=== PATIENT | male | born 1930 | race Asian ===

== ENCOUNTER 2018-08-06 06:27 | Day surgery (SDC) | payer MEDICAID ==
[~2018-08-06 06:27] MED LIST: ceFAZolin 1 GM in Premix Bag 1 BAG IV ONE
--- NOTE | 2018-08-06 07:22 | PCM.PREANE ---
Preanesthetic Assessment - Anesthesia/Transfusion/Family Hx Anesthesia History: Prior Anesthesia Without Reaction Family History of Anesthesia Reaction: No Transfusion History: Prior Transfusion Without Reaction - Review of Systems General: No Symptoms Pulmonary: No Symptoms Cardiovascular: No Symptoms Gastrointestinal: No Symptoms Neurological: Confusion, Pre-Existing Deficit, Trouble Speaking, Difficulty Walking Other: Reports: None - Physical Assessment NPO Status Date: 08/05/18 O2 Sat by Pulse Oximetry: 98 Respiratory Rate: 18 Vital Signs: Last Vital Signs Temp 97.3 F 08/06/18 07:08 Pulse 72 08/06/18 07:08 Resp 18 08/06/18 07:08 BP 188/92 H 08/06/18 07:08 Pulse Ox 98 08/06/18 07:08 Height: 5 ft 5.3 in Weight: 68.039 kg ASA Class: 3 Mental Status: Other (non verbal since CVA, appears to understand speaker, opens mouth when asked) Airway Class: Mallampati = 3 Dentition: Reports: Missing Tooth/Teeth ROM/Head Extension: Limited/Partial Lungs: Clear to Auscultation, Normal Respiratory Effort Cardiovascular: Regular Rate, Regular Rhythm - Allergies Allergies/Adverse Reactions: Allergies Allergy/AdvReac Type Severity Reaction Status Date / Time seafood Allergy Cannot Uncoded 08/04/18 15:52 Remember - Blood Blood Available: No - Anesthesia Plan Pre-Op Medication Ordered: None - Acknowledgements Anesthesia Type Planned: MAC Pt an Appropriate Candidate for the Planned Anesthesia: Yes Alternatives and Risks of Anesthesia Discussed w Pt/Guardian: Yes Pt/Guardian Understands and Agrees with Anesthesia Plan: Yes Additional Comments: daughter came to hosp yest to meet with me, discussed anesthesia options, hx taken from her as well os surgeons H&P, PMH: 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, dementia- on altzheimers med, non verbal, s/p CVA with hemiparesis, DM2 -on metformin, htn , hld, on meds for GERD, Full code status in [facility], PLAN: MAC, with conversion to GA if he becomes agitated or uncooperative while in the OR PreAnesthesia Questionnaire HEENT History: Reports: Cataract, Other (See Below) Other HEENT History: wears glasses Cardiovascular History: Reports: High Cholesterol, Hypertension Respiratory History: Reports: Asthma, Other (See Below) Other Respiratory History: his daughter said he had "asthma" 10 years ago but not now Gastrointestinal History: Reports: GERD Neurological History: Reports: CVA, Other (See Below) Other Neuro History: hx of dementia, hemiplegic Psychiatric History: Reports: Dementia, Depression Endocrine/Metabolic History: Reports: Diabetes, Type II Oncologic (Cancer) History: Reports: Squamous Cell Carcinoma Dermatologic History: Reports: Other (See Below) Other Dermatologic History: possible pressure ulcer - Past Surgical History HEENT Surgical History: Reports: Cataract Surgery GI Surgical History: Reports: Cholecystectomy Dermatological Surgical History: Reports: Skin Biopsy - HOME MEDS Home Medications: Home Meds Famotidine [Pepcid] 20 mg PO BID 08/04/18 [History] Mirtazapine 15 mg PO BEDTIME 08/04/18 [History] Potassium Chloride 20 meq PO BID 08/04/18 [History] Pravastatin [Pravachol] 20 mg PO DAILY 08/04/18 [History] Rivastigmine [Exelon] 1 patch TOP ASDIRECTED 08/04/18 [History] metFORMIN HCl [Metformin HCl] 500 mg PO BIDMEALS 08/04/18 [History] - CURRENT (IN HOUSE) MEDS Current Meds: Current Medications Bupivacaine HCl/Epinephrine Bitart (Marcaine 0.25%/Epinephrine 1:200,000) 10 ml INJECT ONETIME ONE Stop: 08/06/18 08:01 Lactated Ringer's (Ringers, Lactated) 1,000 mls @ 125 mls/hr IV ASDIRECTED HEIDY Last Admin: 08/06/18 07:00 Dose: 125 mls/hr Discontinued Medications Cefazolin Sodium/Dextrose 1 gm (/ Premix) 50 mls @ 100 mls/hr IV ONETIME ONE Stop: 08/05/18 13:08
[2018-08-06] MEDS ORDERED: Bupivacaine 25%/EPINEPHrine/PF 30 ML ONE (07:26)
[2018-08-06] MEDS ORDERED: Lidocaine 2% 5 ML SDV ONE (07:43)
[2018-08-06] MEDS ORDERED: Propofol 200 MG/20 ML SDV ONE (07:43)
[2018-08-06] MEDS ORDERED: Bupivacaine 0.25%/EPINEPHrine 1:200,000 10 ML SDV INJECT ONE (08:00)
[2018-08-06] MEDS ORDERED: Lactated Ringers 1,000 ML IV SCH (08:00)
[2018-08-06] MEDS ORDERED: fentaNYL 100 MCG/2 ML SDV ONE (08:11)
--- NOTE | 2018-08-06 09:19 | PCM.POSTAN ---
POST ANESTHESIA ASSESSMENT - MENTAL STATUS Mental Status: Alert, Oriented - RESPIRATORY Respiratory Status: Respiratory Rate WNL, Airway Patent, O2 Saturation Stable - CARDIOVASCULAR CV Status: Pulse Rate WNL, Blood Pressure Stable - GASTROINTESTINAL GI Status: No Symptoms - POST OP HYDRATION Hydration Status: Adequate & Stable
--- NOTE | 2018-08-06 09:47 | PCM48HPAN ---
Post Anesthesia Note - EVALUATION WITHIN 48HRS OF ANESTHETIC Vital Signs in Normal Range: Yes Patient Participated in Evaluation: Yes Respiratory Function Stable: Yes Airway Patent: Yes Cardiovascular Function Stable: Yes Hydration Status Stable: Yes Pain Control Satisfactory: Yes Nausea and Vomiting Control Satisfactory: Yes Mental Status Recovered: Yes Resp Rate: 16
--- NOTE | 2018-08-06 11:35 | PCM.OPNOTE ---
- General Post-Op/Procedure Note Date of Surgery/Procedure: 08/06/18 Operative Procedure(s): excision of right amish squamous cell with frozen sections 4cm excision and intermediate repair Pre Op Diagnosis: right amish squamous cell 1.8cm Post-Op Diagnosis: Same Anesthesia Technique: Local, MAC Primary Surgeon: Kendra Le Pan Shaker: Oxana Albarado Complications: None Condition: Good Free Text/Narrative:: Intake & Output 08/05/18 08/06/18 08/06/18 23:59 07:59 15:59 Intake Total 550 Balance 550
== END 2018-08-06 10:04 | disposition home or self-care (01) ==
LOC: MW.SDS 06:27
PROVIDERS: ATTEND Plastic Surgery
DX: D04.39 Carcinoma in situ of skin of other parts of face (principal); I10 Essential (primary) hypertension; E11.9 Type 2 diabetes mellitus without complications; F03.90 Unspecified dementia, unspecified severity, without behavioral disturbance, psychotic disturbance, mood disturbance, and anxiety; E78.00 Pure hypercholesterolemia, unspecified; I63.9 Cerebral infarction, unspecified; G81.90 Hemiplegia, unspecified affecting unspecified side; K21.9 Gastro-esophageal reflux disease without esophagitis; F32.9 Major depressive disorder, single episode, unspecified; Z87.39 Personal history of other diseases of the musculoskeletal system and connective tissue; Z91.013 Allergy to seafood
CPT/HCPCS: 21012; 82962; J0690; J2001; J2704; J3010; J7120; 00300; 88305; 88331

== ENCOUNTER 2021-02-23 13:11 | Inpatient (IN) | payer MEDICAID ==
[2021-02-23] MEDS ORDERED: Sodium Chloride 0.9% 10 ML Syringe FLUSH PRN (13:13)
[2021-02-23] MEDS ORDERED: Sodium Chloride 0.9% 2.5 ML Syringe FLUSH PRN (13:13)
[2021-02-23] MEDS ORDERED: Sodium Chloride 0.9% 1,000 ML IV ONE ×2 (13:19→14:52)
--- NOTE | 2021-02-23 13:44 | EDM.PDOC ---
ED HPI GENERAL MEDICAL PROBLEM - General Chief Complaint: Respiratory Problem Stated Complaint: EMS Time Seen by Provider: 02/23/21 13:12 Source of Information: Reports: Residential Records History Limitations: Reports: Other (Nonverbal) - History of Present Illness INITIAL COMMENTS - FREE TEXT/NARRATIVE: HISTORY AND PHYSICAL: History of present illness: Patient is an 89 year old male who presents to the ED with known COVID-19 who is tachycardic and hypoxic. Patient was diagnosed with COVID-19 on February 17, 2021. He received the antibody therapy on the . He has been quarantined on the "COVID unit" at [facility]. According to staff he has had a decreased appetite, tachycardic with a heart rate in the 130s to 160s and noted to have oxygen saturation of 83% on room air. Patient is not typically on oxygen. Past medical history of dementia and being nonverbal (does yell and responds to his name), CVA, hemiplegia, hypertension, and type 2 diabetes. It is reported that patient is at his baseline. Review of systems: As per history of present illness and below otherwise all systems reviewed and negative. Past medical history: As per history of present illness and as reviewed below otherwise noncontributory. Surgical history: As per history of present illness and as reviewed below otherwise noncontributory. Social history: See social history for further information Family history: As per history of present illness and as reviewed below otherwise noncontributory. Physical exam: General: Well nourished 89 year old male. Alert and appropriate to self (hx of dementia and being nonverbal). Mood and affect are appropriate. Nontoxic in appearance and in no acute distress. Vital signs have been reviewed by me. Nursing notes were reviewed. HEENT: Normocephalic, pupils equal and reactive bilaterally, negative for conjunctival pallor or scleral icterus, mucous membranes moist, TMs normal bilaterally, throat clear, neck supple, nontender, trachea midline. No drooling or trismus noted. No meningeal signs. Lungs: Diminished to auscultation bilaterally. No wheezes, rales, or rhonchi. Chest nontender. Normal work of breathing, no accessory muscles used. Heart: Tachycardia with rate of 150- 160's. Abdomen: Soft, nondistended, appears to be nontender. Normoactive bowel sounds. Negative for masses or costovertebral tenderness. Skin: Intact, warm, dry. No lesions or rashes noted. Hematologic: No petechiae or purpra. Mucosa appropriate color and normal nail bed color and refill. Extremities: Atraumatic, moves right sided extremities per self without difficulty, hemiplegia involving the left. Strong radial and pedal pulses bilaterally. Neurovascular unremarkable. Neuro: Awake, alert, and appropriate for self. Cranial nerves unremarkable. Cerebellum unremarkable. Motor and sensory unremarkable throughout. Exam nonfocal. Please note that the patient was seen and evaluated during the 2019 SARS-CoV-2 novel coronavirus pandemic period. Community viral transmission is ongoing at time of this encounter and the emergency department is operating under pandemic response procedures. Medical Decision Making: Patient is brought to the ED with known COVID-19 (not on file here), received antibody therapy. He has been on the COVID unit at [facility], nursing staff noted his pulse in 130-160's over the past two days, today became hypoxic at 83% on RA. He bumps to 94% on 4L per NC. Patient has a PMH of dementia and being nonverbal (while here is is hollering and responds to his name), CVA, hemiplegia of left side, hypertension, and type 2 diabetes. It is noted that the patient's pulse is in the 150s to 160s. Does look like there are may be P waves, will start Cardizem and reevaluate. Chest x-ray shows patchy and interstitial opacities throughout the lungs bilaterally suspicious for COVID pneumonia. Tiny bilateral pleural effusions. Cardiomegaly. Patient has an elevated BUN 68 and Creat 2.1 (no previous labs to compare to). Elevated troponin at 0.357 (patient denies chest pain, states "no" when asked). Elevated D.dimer at 3.28. Radiology will not perform CT at this time due to renal function. After administering 12 mg of IV adenosine, patient's ventricular rate slowed down to 70 bpm. There are clear flutter waves noted between his ventricular beats. Shortly after administrating his adenosine, his heart rate sped back up to 150 bpm. Patient had previously been on adenosine per protocol, will give 0.25 mg/kg bolus and then increase to 10 with close monitoring of his blood pressure. Spoke with Dr Zuniga, hospitalist about this patient. Dr. Zuniga, is here to evaluate the patient. I did did update the family about patient admission. Patient's blood pressure is within normal limits, pulse has responded appropriately to the Cardizem. Patient will be admitted to the ICU. Diagnostics: CBC, CMP, Troponin, EKG, CXR, D.Dimer, Mag, COVID, CT PE, lactate Therapeutics: IV fluids, Remdesivir, Dexadron, Cardizem drip Impression: COVID-19 Renal insufficiency Hypomagnesium Atrial flutter vs fib, new onset Plan: ICU admission Definitive disposition and diagnosis as appropriate pending reevaluation and review of above. - Related Data Allergies Allergy/AdvReac Type Severity Reaction Status Date / Time seafood Allergy Cannot Uncoded 02/23/21 13:20 Remember Home Meds: Home Meds metFORMIN HCl [Metformin HCl] 500 mg PO BIDMEALS 08/04/18 [History] Acetaminophen [Tylenol] 500 mg PO Q6H 02/23/21 [History] Albuterol Sulfate 1 vial INH Q4H PRN 02/23/21 [History] Amino Acids/Protein Hydrolys [Prosource No Carb Liquid Pkt] 30 ml PO BID 02/23/21 [History] Aspirin 81 mg PO DAILY 02/23/21 [History] Calcium Citrate/Vitamin D3 [Calcium Citrate - Vit D3 Tab] 1 tab PO DAILY 02/23/21 [History] Carbamide Peroxide [Debrox] 3 drop EARBOTH BEDTIME PRN 02/23/21 [History] Codeine Phosphate/Guaifenesin [Guaifenesin AC Cough Syrup] 2 tsp PO Q4H PRN 02/23/21 [History] Cyanocobalamin (Vitamin B-12) [Vitamin B-12] 1,000 mcg PO DAILY 02/23/21 [History] Docusate Sodium [Colace] 100 mg PO BID 02/23/21 [History] Magnesium Hydroxide 1 gm PO DAILY PRN 02/23/21 [History] Mirtazapine 7.5 mg PO BEDTIME 02/23/21 [History] Multivitamin 1 tab PO DAILY 02/23/21 [History] Nitroglycerin [Nitrostat] 0.4 mg PO Q15M PRN 02/23/21 [History] Omeprazole 20 mg PO DAILY 02/23/21 [History] Potassium Chloride 20 meq PO BID 02/23/21 [History] Pravastatin Sodium 20 mg PO BEDTIME 02/23/21 [History] Pravastatin [Pravachol] 20 mg PO BEDTIME 02/23/21 [History] Rivastigmine Tartrate [Rivastigmine] 4.5 mg PO DAILY 02/23/21 [History] Sennosides [Senna] 2 tab PO BEDTIME 02/23/21 [History] amLODIPine Besylate [Amlodipine Besylate] 5 mg PO DAILY 02/23/21 [History] bisacodyL [Bisacodyl] 10 mg PO DAILY PRN 02/23/21 [History] hydrOXYzine HCL [Hydroxyzine HCl] 25 mg PO BID 02/23/21 [History] oxyCODONE HCl/Acetaminophen [Percocet 5-325 mg Tablet] 1 tab PO Q6H PRN 02/23/21 [History] polyethylene glycoL 3350 [MiraLAX] 17 gm PO BID 02/23/21 [History] predniSONE [Prednisone] 20 mg PO DAILY 02/23/21 [History] Past Medical History HEENT History: Reports: Cataract, Other (See Below) Other HEENT History: wears glasses Cardiovascular History: Reports: High Cholesterol, Hypertension Respiratory History: Reports: Asthma, Other (See Below) Other Respiratory History: his daughter said he had "asthma" 10 years ago but not now Gastrointestinal History: Reports: GERD Neurological History: Reports: CVA, Other (See Below) Other Neuro History: hx of dementia, hemiplegic Psychiatric History: Reports: Dementia, Depression Endocrine/Metabolic History: Reports: Diabetes, Type II Oncologic (Cancer) History: Reports: Squamous Cell Carcinoma Dermatologic History: Reports: Other (See Below) Other Dermatologic History: possible pressure ulcer - Past Surgical History HEENT Surgical History: Reports: Cataract Surgery GI Surgical History: Reports: Cholecystectomy Dermatological Surgical History: Reports: Skin Biopsy ED ROS GENERAL - Review of Systems Review Of Systems: Comprehensive ROS is negative, except as noted in HPI. ED EXAM, GENERAL - Physical Exam Exam: See Below (See dication) Course - Vital Signs Last Recorded V/S: Last Vital Signs Temp 97.9 F 02/23/21 18:00 Pulse 106 H 02/23/21 18:00 Resp 25 H 02/23/21 18:00 BP 105/66 02/23/21 18:00 Pulse Ox 95 02/23/21 18:00 - Orders/Labs/Meds Orders: Active Orders 24 hr Category Date Time Status Santoro Catheter Insertion [Insert Urinary Catheter] [OM. Care 02/23/21 14:30 Ordered PC] Q24H Oxygen Therapy, ED [RC] ASDIRECTED Care 02/23/21 13:14 Active Urinary Catheter Assessment [RC] ASDIRECTED Care 02/23/21 14:19 Active Sodium Chloride 0.9% [Saline Flush] Med 02/23/21 13:13 Active 10 ml FLUSH ASDIRECTED PRN Sodium Chloride 0.9% [Saline Flush] Med 02/23/21 13:13 Active 2.5 ml FLUSH ASDIRECTED PRN Saline Lock Insert [OM.PC] Stat Oth 02/23/21 13:14 Ordered Medication Orders Albuterol/Ipratropium (Albuterol/Ipratropium 3.0-0.5 Mg/3 Ml Neb Soln) 3 ml NEB Q4HRRT [facility] Amlodipine Besylate (Amlodipine 5 Mg Tab) 5 mg PO DAILY [facility] Aspirin (Aspirin 81 Mg Tab.Chew) 81 mg PO DAILY [facility] Bisacodyl (Bisacodyl 10 Mg Supp) 10 mg RECTAL DAILY PRN PRN Reason: Constipation Dexamethasone (Dexamethasone 10 Mg/Ml Sdv) 6 mg IVPUSH Q24H [facility] Docusate Sodium (Docusate Sodium 100 Mg Cap) 100 mg PO BID [facility] Guaifenesin/Codeine Phosphate (Codeine/Guaifenesin 10-100 Mg/5 Ml Syrup 5 Ml Cup) 5 ml PO Q4H PRN PRN Reason: Cough Hydroxyzine HCl (Hydroxyzine Hcl 25 Mg Tab) 25 mg PO BID [facility] Remdesivir 100 mg/ Sodium (Chloride) 100 mls @ 100 mls/hr IV Q24H [facility] Stop: 02/27/21 18:44 Diltiazem HCl 100 mg/ Sodium (Chloride) 100 mls @ 5 mls/hr IV ASDIRECTED [facility]; Protocol Sodium Chloride (Normal Saline) 500 mls @ 75 mls/hr IV ASDIRECTED [facility] Lorazepam (Lorazepam 2 Mg/Ml Sdv) 0.5 mg IVPUSH Q6HR PRN PRN Reason: Agitation Last Admin: 02/23/21 18:00 Dose: 0.5 mg Documented by: SPARLAT Magnesium Hydroxide (Magnesium Hydroxide 400 Mg/5 Ml Susp 30 Ml Cup) 30 ml PO DAILY PRN PRN Reason: Constipation Mirtazapine (Mirtazapine 15 Mg Tab) 7.5 mg PO BEDTIME [facility] Morphine Sulfate (Morphine 2 Mg/Ml Syringe) 2 mg IVPUSH Q2H PRN PRN Reason: Pain Last Admin: 02/23/21 18:00 Dose: 2 mg Documented by: SPARLAT Nitroglycerin (Nitroglycerin 0.4 Mg Tab.Sl) 0.4 mg SL .Q5MIN PRN PRN Reason: Chest Pain Omeprazole (Omeprazole 20 Mg Cap.Cr) 20 mg PO DAILY@0630 [facility] Oxycodone/Acetaminophen (Acetaminophen/Oxycodone 325-5 Mg Tab) 1 tab PO Q6H PRN PRN Reason: Pain Rivastigmine Tartrate [ Rivastigmine] 4.5 Mg Capsule 1 each PO DAILY [facility] Senna (Sennosides 8.6 Mg Tab) 17.2 mg PO BEDTIME [facility] Sodium Chloride (Sodium Chloride 0.9% 10 Ml Syringe) 10 ml FLUSH ASDIRECTED PRN PRN Reason: Keep Vein Open Last Admin: 02/23/21 14:14 Dose: 10 ml Documented by: AIMEE Sodium Chloride (Sodium Chloride 0.9% 2.5 Ml Syringe) 2.5 ml FLUSH ASDIRECTED PRN PRN Reason: Keep Vein Open Last Admin: 02/23/21 14:13 Dose: 2.5 ml Documented by: AIMEE Labs: Laboratory Tests 02/23/21 02/23/21 02/23/21 Range/Units 13:30 13:30 13:30 WBC 10.95 (4.0-11.0) K/uL RBC 4.95 (4.50-5.90) M/uL Hgb 15.1 (13.0-17.0) g/dL Hct 46.1 (38.0-50.0) % MCV 93.1 (80.0-98.0) fL MCH 30.5 (27.0-32.0) pg MCHC 32.8 (31.0-37.0) g/dL RDW Std Deviation 48.9 (28.0-62.0) fl RDW Coeff of Will 15 (11.0-15.0) % Plt Count 346 (150-400) K/uL MPV 10.20 (7.40-12.00) fL Add Manual Diff YES Neutrophils % (Manual) 89 H (48.0-80.0) % Band Neutrophils % 3 % Lymphocytes % (Manual) 4 L (16.0-40.0) % Monocytes % (Manual) 2 (0.0-15.0) % Metamyelocytes % 1 % Myelocytes % 1 % Nucleated RBC % 5.9 /100WBC Absolute Seg Neuts 9.7 H (1.4-5.7) Band Neutrophils # 0.3 Lymphocytes # (Manual) 0.4 L (0.6-2.4) Monocytes # (Manual) 0.2 (0.0-0.8) Absolute Metamyelocyte 0.1 Absolute Myelocytes 0.1 Nucleated RBCs # 1 K/uL D-Dimer, Quantitative 3.28 H (0.0-0.50) mg/L FEU Sodium 151 H (136-148) mmol/L Potassium 5.5 H (3.5-5.1) mmol/L Chloride 114 H (98-107) mmol/L Carbon Dioxide 22.7 (21.0-32.0) mmol/L BUN 68 H (7.0-18.0) mg/dL Creatinine 2.1 H (0.8-1.3) mg/dL Est Cr Clr Drug Dosing 20.36 mL/min Estimated GFR (MDRD) 30.0 ml/min Glucose 214 H (74-106) mg/dL Lactic Acid (0.4-2.0) mmol/L Calcium 10.3 H (8.5-10.1) mg/dL Magnesium 2.6 H (1.8-2.4) mg/dL Total Bilirubin 0.6 (0.2-1.0) mg/dL AST 33 (15-37) IU/L ALT 43 (14-63) IU/L Alkaline Phosphatase 157 H (46-116) U/L Troponin I 0.357 H* (0.000-0.056) ng/mL Total Protein 7.2 (6.4-8.2) g/dL Albumin 2.3 L (3.4-5.0) g/dL Globulin 4.9 H (2.6-4.0) g/dL Albumin/Globulin Ratio 0.5 L (0.9-1.6) Urine Color Urine Appearance Urine pH (5.0-8.0) Ur Specific Polson (1.001-1.035) Urine Protein (NEGATIVE) mg/dL Urine Glucose (UA) (NEGATIVE) mg/dL Urine Ketones (NEGATIVE) mg/dL Urine Occult Blood (NEGATIVE) Urine Nitrite (NEGATIVE) Urine Bilirubin (NEGATIVE) Urine Urobilinogen (<2.0) EU/dL Ur Leukocyte Esterase (NEGATIVE) Urine RBC (0-2/HPF) Urine WBC (0-5/HPF) Ur Epithelial Cells (NONE-FEW) Urine Bacteria (NEGATIVE) Influenza Type A RNA (NEGATIVE) Influenza Type B RNA (NEGATIVE) SARS-CoV-2 RNA (ALESSANDRA) (NEGATIVE) 02/23/21 02/23/21 02/23/21 Range/Units 13:56 14:05 15:20 WBC (4.0-11.0) K/uL RBC (4.50-5.90) M/uL Hgb (13.0-17.0) g/dL Hct (38.0-50.0) % MCV (80.0-98.0) fL MCH (27.0-32.0) pg MCHC (31.0-37.0) g/dL RDW Std Deviation (28.0-62.0) fl RDW Coeff of Will (11.0-15.0) % Plt Count (150-400) K/uL MPV (7.40-12.00) fL Add Manual Diff Neutrophils % (Manual) (48.0-80.0) % Band Neutrophils % % Lymphocytes % (Manual) (16.0-40.0) % Monocytes % (Manual) (0.0-15.0) % Metamyelocytes % % Myelocytes % % Nucleated RBC % /100WBC Absolute Seg Neuts (1.4-5.7) Band Neutrophils # Lymphocytes # (Manual) (0.6-2.4) Monocytes # (Manual) (0.0-0.8) Absolute Metamyelocyte Absolute Myelocytes Nucleated RBCs # K/uL D-Dimer, Quantitative (0.0-0.50) mg/L FEU Sodium (136-148) mmol/L Potassium (3.5-5.1) mmol/L Chloride (98-107) mmol/L Carbon Dioxide (21.0-32.0) mmol/L BUN (7.0-18.0) mg/dL Creatinine (0.8-1.3) mg/dL Est Cr Clr Drug Dosing mL/min Estimated GFR (MDRD) ml/min Glucose (74-106) mg/dL Lactic Acid 2.9 H* (0.4-2.0) mmol/L Calcium (8.5-10.1) mg/dL Magnesium (1.8-2.4) mg/dL Total Bilirubin (0.2-1.0) mg/dL AST (15-37) IU/L ALT (14-63) IU/L Alkaline Phosphatase (46-116) U/L Troponin I (0.000-0.056) ng/mL Total Protein (6.4-8.2) g/dL Albumin (3.4-5.0) g/dL Globulin (2.6-4.0) g/dL Albumin/Globulin Ratio (0.9-1.6) Urine Color YELLOW Urine Appearance HAZY Urine pH 5.5 (5.0-8.0) Ur Specific [place] 1.020 (1.001-1.035) Urine Protein NEGATIVE (NEGATIVE) mg/dL Urine Glucose (UA) NEGATIVE (NEGATIVE) mg/dL Urine Ketones 15 H (NEGATIVE) mg/dL Urine Occult Blood SMALL H (NEGATIVE) Urine Nitrite NEGATIVE (NEGATIVE) Urine Bilirubin SMALL H (NEGATIVE) Urine Urobilinogen 0.2 (<2.0) EU/dL Ur Leukocyte Esterase NEGATIVE (NEGATIVE) Urine RBC 1-4 (0-2/HPF) Urine WBC 0-2 (0-5/HPF) Ur Epithelial Cells RARE (NONE-FEW) Urine Bacteria RARE (NEGATIVE) Influenza Type A RNA NEGATIVE (NEGATIVE) Influenza Type B RNA NEGATIVE (NEGATIVE) SARS-CoV-2 RNA (ALESSANDRA) POSITIVE H (NEGATIVE) Meds: Medications Generic Name Dose Route Start Last Admin Trade Name Freq PRN Reason Stop Dose Admin Albuterol/Ipratropium 3 ml 02/23/21 22:00 Albuterol/Ipratropium 3.0-0.5 Mg/3 Ml Neb Soln NEB Q4HRRT [facility] Amlodipine Besylate 5 mg 02/24/21 09:00 Amlodipine 5 Mg Tab PO DAILY [facility] Aspirin 81 mg 02/24/21 09:00 Aspirin 81 Mg Tab.Chew PO DAILY [facility] Bisacodyl 10 mg 02/23/21 15:46 Bisacodyl 10 Mg Supp RECTAL DAILY PRN Constipation Dexamethasone 6 mg 02/24/21 17:00 Dexamethasone 10 Mg/Ml Sdv IVPUSH Q24H [facility] Docusate Sodium 100 mg 02/23/21 21:00 Docusate Sodium 100 Mg Cap PO BID [facility] Guaifenesin/Codeine Phosphate 5 ml 02/23/21 16:07 Codeine/Guaifenesin 10-100 Mg/5 Ml Syrup 5 Ml Cup PO Q4H PRN Cough Hydroxyzine HCl 25 mg 02/23/21 21:00 Hydroxyzine Hcl 25 Mg Tab PO BID [facility] Remdesivir 100 mg/ Sodium 100 mls @ 100 mls/hr 02/24/21 17:45 Chloride IV 02/27/21 18:44 Q24H [facility] Diltiazem HCl 100 mg/ Sodium 100 mls @ 5 mls/hr 02/23/21 17:45 Chloride IV ASDIRECTED [facility] Protocol 5 MG/HR Sodium Chloride 500 mls @ 75 mls/hr 02/23/21 18:15 Normal Saline IV ASDIRECTED [facility] Lorazepam 0.5 mg 02/23/21 17:51 02/23/21 18:00 Lorazepam 2 Mg/Ml Sdv IVPUSH 0.5 mg Q6HR PRN Administration Agitation Magnesium Hydroxide 30 ml 02/23/21 16:08 Magnesium Hydroxide 400 Mg/5 Ml Susp 30 Ml Cup PO DAILY PRN Constipation Mirtazapine 7.5 mg 02/23/21 21:00 Mirtazapine 15 Mg Tab PO BEDTIME [facility] Morphine Sulfate 2 mg 02/23/21 17:52 02/23/21 18:00 Morphine 2 Mg/Ml Syringe IVPUSH 2 mg Q2H PRN Administration Pain Nitroglycerin 0.4 mg 02/23/21 15:46 Nitroglycerin 0.4 Mg Tab.Sl SL .Q5MIN PRN Chest Pain Omeprazole 20 mg 02/24/21 06:30 Omeprazole 20 Mg Cap.Cr PO DAILY@0630 [facility] Oxycodone/Acetaminophen 1 tab 02/23/21 15:46 Acetaminophen/Oxycodone 325-5 Mg Tab PO Q6H PRN Pain Rivastigmine 1 each 02/24/21 09:00 Tartrate [ PO Rivastigmine] 4.5 Mg DAILY [facility] Capsule Senna 17.2 mg 02/23/21 21:00 Sennosides 8.6 Mg Tab PO BEDTIME [facility] Sodium Chloride 10 ml 02/23/21 13:13 02/23/21 14:14 Sodium Chloride 0.9% 10 Ml Syringe FLUSH 10 ml ASDIRECTED PRN Administration Keep Vein Open Sodium Chloride 2.5 ml 02/23/21 13:13 02/23/21 14:13 Sodium Chloride 0.9% 2.5 Ml Syringe FLUSH 2.5 ml ASDIRECTED PRN Administration Keep Vein Open Discontinued Medications Generic Name Dose Route Start Last Admin Trade Name Freq PRN Reason Stop Dose Admin Adenosine 12 mg 02/23/21 14:58 02/23/21 15:29 Adenosine 6 Mg/2 Ml Sdv IVPUSH 02/23/21 14:59 12 mg NOW ONE Administration Albuterol 2.5 mg 02/23/21 21:00 Albuterol 0.083% 2.5 Mg/3 Ml Neb Soln INH QIDRT [facility] Dexamethasone 6 mg 02/23/21 14:27 02/23/21 15:26 Dexamethasone 4 Mg/Ml Sdv IVPUSH 02/23/21 14:28 6 mg ONETIME ONE Administration Dexamethasone 6 mg 02/23/21 17:45 Dexamethasone 4 Mg/Ml Sdv IVPUSH 03/04/21 17:46 Q6H [facility] Diltiazem HCl 15 mg 02/23/21 15:17 02/23/21 15:27 Diltiazem 25 Mg/5 Ml Sdv IVPUSH 02/23/21 15:18 15 mg ONETIME ONE Administration Sodium Chloride 1,000 mls @ 999 mls/hr 02/23/21 13:19 02/23/21 13:54 Normal Saline IV 02/23/21 14:19 999 mls/hr STAT ONE Administration Diltiazem HCl 100 mg/ Sodium 100 mls @ 5 mls/hr 02/23/21 14:00 02/23/21 17:30 Chloride IV 15 mg/hr NOW [facility] 15 mls/hr Titration Protocol 5 MG/HR Remdesivir 200 mg/ Sodium 250 mls @ 250 mls/hr 02/23/21 14:27 02/23/21 15:21 Chloride IV 02/23/21 14:28 250 mls/hr ONETIME ONE Administration Sodium Chloride 1,000 mls @ 999 mls/hr 02/23/21 14:52 02/23/21 15:18 Normal Saline IV 02/23/21 15:52 999 mls/hr STAT ONE Administration Prednisone 20 mg 02/24/21 09:00 Prednisone 20 Mg Tab PO DAILY [facility] Departure - Departure Time of Disposition: 20:14 Disposition: Admitted As Inpatient 68 Clinical Impression: COVID-19, Renal insufficiency, Atrial fibrillation with RVR, Hypomagnesemia - Discharge Information Critical Care Note - Critical Care Note Total Time (mins): 38 Comments: Critical care time is exclusive of billable procedures and the time to perform these procedures. Critical care time was used to prevent vital system organ failure and deterioration. Critical care time includes bedside management and high-complexity decision making requiring my highest level of mental preparedness and attention. This includes reviewing the patient's chart and prior medical records, ordering and reviewing interpreting laboratory studies and imaging results, interpretation of vital signs and EKG, pulse oximetry, and discussion with the admitting team along with EMS and nursing staff. Patient has had abnormal lab values along with abnormal vital signs that have been monitored closely and treated/adjusted accordingly. Please see dictation. Sepsis Event Note (ED) - Focused Exam Vital Signs: Vital Signs Temp Pulse Resp BP Pulse Ox 02/23/21 15:02 157 H 119/68 94 L 02/23/21 14:47 158 H 113/78 98 02/23/21 14:32 158 H 121/82 97 02/23/21 14:15 158 H 115/85 93 L 02/23/21 13:44 159 H 20 115/82 93 L 02/23/21 13:11 97.8 F 160 H 18 125/84 89 L - My Orders Last 24 Hours: My Active Orders 02/23/21 13:13 Sodium Chloride 0.9% [Saline Flush] 10 ml FLUSH ASDIRECTED PRN Sodium Chloride 0.9% [Saline Flush] 2.5 ml FLUSH ASDIRECTED PRN 02/23/21 13:14 Oxygen Therapy, ED [RC] ASDIRECTED Saline Lock Insert [OM.PC] Stat 02/23/21 14:19 Urinary Catheter Assessment [RC] ASDIRECTED 02/23/21 14:30 Santoro Catheter Insertion [Insert Urinary Catheter] [OM.PC] Q24H - Assessment/Plan Last 24 Hours: My Active Orders 02/23/21 13:13 Sodium Chloride 0.9% [Saline Flush] 10 ml FLUSH ASDIRECTED PRN Sodium Chloride 0.9% [Saline Flush] 2.5 ml FLUSH ASDIRECTED PRN 02/23/21 13:14 Oxygen Therapy, ED [RC] ASDIRECTED Saline Lock Insert [OM.PC] Stat 02/23/21 14:19 Urinary Catheter Assessment [RC] ASDIRECTED 02/23/21 14:30 Santoro Catheter Insertion [Insert Urinary Catheter] [OM.PC] Q24H
[2021-02-23] MEDS ORDERED: Diltiazem 100 MG in Sodium Chloride 0.9% 100 ML IV SCH (14:00)
[2021-02-23 14:11] LABS: CARBON DIOXIDE,CO2 22.7 mmol/L (21.0-32.0); POTASSIUM,K 5.5 mmol/L (3.5-5.1)
--- NOTE | 2021-02-23 14:11 | CR ---
INDICATION: COVID, hypoxia. TECHNIQUE: Chest 1 view. COMPARISON: None. FINDINGS: There are patchy and interstitial opacities throughout the lungs bilaterally. Tiny bilateral pleural effusions. No pneumothorax identified, however the patient`s chin partially obscures the lung apices. Cardiomegaly. Aortic calcification. The bones are unremarkable. IMPRESSION: 1. Patchy and interstitial opacities throughout the lungs bilaterally suspicious for COVID pneumonia. 2. Tiny bilateral pleural effusions. 3. Cardiomegaly. Dictated by Christina Kumar MD @ 02/23/2021 2:09:53 PM (Electronically Signed)
[2021-02-23] MEDS ORDERED: Dexamethasone 4 MG/ML SDV IVPUSH ONE (14:27)
[2021-02-23] MEDS ORDERED: REMDESIVIR 200 MG in Sodium Chloride 0.9% 250 ML IV ONE (14:27)
[2021-02-23 14:47] LABS: CORONAVIRUS COVID-19 NAA POSITIVE (NEGATIVE); INFLUENZA A NAA NEGATIVE (NEGATIVE); INFLUENZA B NAA NEGATIVE (NEGATIVE)
[2021-02-23] MEDS ORDERED: Adenosine 6 MG/2 ML SDV IVPUSH ONE (14:58)
[2021-02-23] MEDS ORDERED: Diltiazem 25 MG/5 ML SDV IVPUSH ONE (15:17)
--- NOTE | 2021-02-23 15:44 | PCM.HP.2 ---
H&P History of Present Illness - General Date of Service: 02/23/21 Admit Problem/Dx: Admission Diagnosis/Problem Admission Diagnosis/Problem Hypoxia - History of Present Illness Initial Comments - Free Text/Narative: This is an 89 y/o male from [facility] who presented to the ED with a rapid heart rate and hypoxemia. He was diagnosed with COVID-19 on February 17, 2021. He received the monoclonal antibody therapy on the . He has been quarantined on the "COVID unit" since then. According to staff he has had a decreased appetite, tachycardic with a heart rate in the 130s to 160s and noted to have oxygen saturation of 83% on room air. Patient is not typically on oxygen. He has a h/o dementia. He is mostly non-verbal but responds to his name by yelling. He has a h/o CVA, hemiplegia, hypertension, and type 2 diabetes. In the ED he was noted to have Afib with RVR. - Related Data Allergies/Adverse Reactions: Allergies Allergy/AdvReac Type Severity Reaction Status Date / Time seafood Allergy Cannot Uncoded 02/23/21 13:20 Remember Home Medications: Home Meds metFORMIN HCl [Metformin HCl] 500 mg PO BIDMEALS 08/04/18 [History] Acetaminophen [Tylenol] 500 mg PO Q6H 02/23/21 [History] Albuterol Sulfate 1 vial INH Q4H PRN 02/23/21 [History] Amino Acids/Protein Hydrolys [Prosource No Carb Liquid Pkt] 30 ml PO BID 02/23/21 [History] Aspirin 81 mg PO DAILY 02/23/21 [History] Calcium Citrate/Vitamin D3 [Calcium Citrate - Vit D3 Tab] 1 tab PO DAILY 02/23/21 [History] Carbamide Peroxide [Debrox] 3 drop EARBOTH BEDTIME PRN 02/23/21 [History] Codeine Phosphate/Guaifenesin [Guaifenesin AC Cough Syrup] 2 tsp PO Q4H PRN 02/23/21 [History] Cyanocobalamin (Vitamin B-12) [Vitamin B-12] 1,000 mcg PO DAILY 02/23/21 [History] Docusate Sodium [Colace] 100 mg PO BID 02/23/21 [History] Magnesium Hydroxide 1 gm PO DAILY PRN 02/23/21 [History] Mirtazapine 7.5 mg PO BEDTIME 02/23/21 [History] Multivitamin 1 tab PO DAILY 02/23/21 [History] Nitroglycerin [Nitrostat] 0.4 mg PO Q15M PRN 02/23/21 [History] Omeprazole 20 mg PO DAILY 02/23/21 [History] Potassium Chloride 20 meq PO BID 02/23/21 [History] Pravastatin Sodium 20 mg PO BEDTIME 02/23/21 [History] Pravastatin [Pravachol] 20 mg PO BEDTIME 02/23/21 [History] Rivastigmine Tartrate [Rivastigmine] 4.5 mg PO DAILY 02/23/21 [History] Sennosides [Senna] 2 tab PO BEDTIME 02/23/21 [History] amLODIPine Besylate [Amlodipine Besylate] 5 mg PO DAILY 02/23/21 [History] bisacodyL [Bisacodyl] 10 mg PO DAILY PRN 02/23/21 [History] hydrOXYzine HCL [Hydroxyzine HCl] 25 mg PO BID 02/23/21 [History] oxyCODONE HCl/Acetaminophen [Percocet 5-325 mg Tablet] 1 tab PO Q6H PRN 02/23/21 [History] polyethylene glycoL 3350 [MiraLAX] 17 gm PO BID 02/23/21 [History] predniSONE [Prednisone] 20 mg PO DAILY 02/23/21 [History] Past Medical History HEENT History: Reports: Cataract, Other (See Below) Other HEENT History: wears glasses Cardiovascular History: Reports: High Cholesterol, Hypertension Respiratory History: Reports: Asthma, Other (See Below) Other Respiratory History: his daughter said he had "asthma" 10 years ago but not now Gastrointestinal History: Reports: GERD Neurological History: Reports: CVA, Other (See Below) Other Neuro History: hx of dementia, hemiplegic Psychiatric History: Reports: Dementia, Depression Endocrine/Metabolic History: Reports: Diabetes, Type II Oncologic (Cancer) History: Reports: Squamous Cell Carcinoma Dermatologic History: Reports: Other (See Below) Other Dermatologic History: possible pressure ulcer - Past Surgical History HEENT Surgical History: Reports: Cataract Surgery GI Surgical History: Reports: Cholecystectomy Dermatological Surgical History: Reports: Skin Biopsy H&P Review of Systems - Review of Systems: Review Of Systems: See Below Exam - Exam Exam: See Below - Vital Signs Vital Signs: Last Vital Signs Temp 97.8 F 02/23/21 13:11 Pulse 160 H 02/23/21 13:11 Resp 18 02/23/21 13:11 BP 125/84 02/23/21 13:11 Pulse Ox 89 L 02/23/21 13:11 Weight: 149 lb - Exam Physical Exam Comments:: General: Elderly male. Responds to his name. CVS: S1S2 appreciated. RRR. Tachycardic lungs: Diminished breath sounds bilaterally pa: soft, non tender. bowel sounds present ext: no clubbing, cyanosis. 1-2+ peripheral edema in the LUE and LLE Neuro: LUE strength 2/5, LUE 1/5 LLE. 5/5 both RUE and RLE. - Patient Data Lab Results Last 24 hrs: Laboratory Results - last 24 hr 02/23/21 02/23/21 02/23/21 Range/Units 13:30 13:30 13:30 WBC 10.95 (4.0-11.0) K/uL RBC 4.95 (4.50-5.90) M/uL Hgb 15.1 (13.0-17.0) g/dL Hct 46.1 (38.0-50.0) % MCV 93.1 (80.0-98.0) fL MCH 30.5 (27.0-32.0) pg MCHC 32.8 (31.0-37.0) g/dL RDW Std Deviation 48.9 (28.0-62.0) fl RDW Coeff of Will 15 (11.0-15.0) % Plt Count 346 (150-400) K/uL MPV 10.20 (7.40-12.00) fL Add Manual Diff YES Neutrophils % (Manual) 89 H (48.0-80.0) % Band Neutrophils % 3 % Lymphocytes % (Manual) 4 L (16.0-40.0) % Monocytes % (Manual) 2 (0.0-15.0) % Metamyelocytes % 1 % Myelocytes % 1 % Nucleated RBC % 5.9 /100WBC Absolute Seg Neuts 9.7 H (1.4-5.7) Band Neutrophils # 0.3 Lymphocytes # (Manual) 0.4 L (0.6-2.4) Monocytes # (Manual) 0.2 (0.0-0.8) Absolute Metamyelocyte 0.1 Absolute Myelocytes 0.1 Nucleated RBCs # 1 K/uL D-Dimer, Quantitative 3.28 H (0.0-0.50) mg/L FEU Sodium 151 H (136-148) mmol/L Potassium 5.5 H (3.5-5.1) mmol/L Chloride 114 H (98-107) mmol/L Carbon Dioxide 22.7 (21.0-32.0) mmol/L BUN 68 H (7.0-18.0) mg/dL Creatinine 2.1 H (0.8-1.3) mg/dL Est Cr Clr Drug Dosing 20.36 mL/min Estimated GFR (MDRD) 30.0 ml/min Glucose 214 H (74-106) mg/dL Lactic Acid (0.4-2.0) mmol/L Calcium 10.3 H (8.5-10.1) mg/dL Magnesium 2.6 H (1.8-2.4) mg/dL Total Bilirubin 0.6 (0.2-1.0) mg/dL AST 33 (15-37) IU/L ALT 43 (14-63) IU/L Alkaline Phosphatase 157 H (46-116) U/L Troponin I 0.357 H* (0.000-0.056) ng/mL Total Protein 7.2 (6.4-8.2) g/dL Albumin 2.3 L (3.4-5.0) g/dL Globulin 4.9 H (2.6-4.0) g/dL Albumin/Globulin Ratio 0.5 L (0.9-1.6) Influenza Type A RNA (NEGATIVE) Influenza Type B RNA (NEGATIVE) SARS-CoV-2 RNA (ALESSANDRA) (NEGATIVE) 02/23/21 02/23/21 Range/Units 13:56 14:05 WBC (4.0-11.0) K/uL RBC (4.50-5.90) M/uL Hgb (13.0-17.0) g/dL Hct (38.0-50.0) % MCV (80.0-98.0) fL MCH (27.0-32.0) pg MCHC (31.0-37.0) g/dL RDW Std Deviation (28.0-62.0) fl RDW Coeff of Will (11.0-15.0) % Plt Count (150-400) K/uL MPV (7.40-12.00) fL Add Manual Diff Neutrophils % (Manual) (48.0-80.0) % Band Neutrophils % % Lymphocytes % (Manual) (16.0-40.0) % Monocytes % (Manual) (0.0-15.0) % Metamyelocytes % % Myelocytes % % Nucleated RBC % /100WBC Absolute Seg Neuts (1.4-5.7) Band Neutrophils # Lymphocytes # (Manual) (0.6-2.4) Monocytes # (Manual) (0.0-0.8) Absolute Metamyelocyte Absolute Myelocytes Nucleated RBCs # K/uL D-Dimer, Quantitative (0.0-0.50) mg/L FEU Sodium (136-148) mmol/L Potassium (3.5-5.1) mmol/L Chloride (98-107) mmol/L Carbon Dioxide (21.0-32.0) mmol/L BUN (7.0-18.0) mg/dL Creatinine (0.8-1.3) mg/dL Est Cr Clr Drug Dosing mL/min Estimated GFR (MDRD) ml/min Glucose (74-106) mg/dL Lactic Acid 2.9 H* (0.4-2.0) mmol/L Calcium (8.5-10.1) mg/dL Magnesium (1.8-2.4) mg/dL Total Bilirubin (0.2-1.0) mg/dL AST (15-37) IU/L ALT (14-63) IU/L Alkaline Phosphatase (46-116) U/L Troponin I (0.000-0.056) ng/mL Total Protein (6.4-8.2) g/dL Albumin (3.4-5.0) g/dL Globulin (2.6-4.0) g/dL Albumin/Globulin Ratio (0.9-1.6) Influenza Type A RNA NEGATIVE (NEGATIVE) Influenza Type B RNA NEGATIVE (NEGATIVE) SARS-CoV-2 RNA (ALESSANDRA) POSITIVE H (NEGATIVE) Result Diagrams: 02/23/21 13:30 02/23/21 13:30 Sepsis Event Note - Evaluation Sepsis Screening Result: No Definite Risk - Focused Exam Vital Signs: Vital Signs Temp Pulse Resp BP Pulse Ox 02/23/21 13:11 97.8 F 160 H 18 125/84 89 L - Problem List (1) Renal failure SNOMED Code(s): 15384508 ICD Code: N19 - UNSPECIFIED KIDNEY FAILURE Status: Acute Current Visit: Yes (2) COVID-19 virus infection SNOMED Code(s): 915088064 ICD Code: U07.1 - COVID-19 Status: Acute Current Visit: Yes (3) Atrial fibrillation with RVR SNOMED Code(s): 361151199904793 ICD Code: I48.91 - UNSPECIFIED ATRIAL FIBRILLATION Status: Acute Current Visit: Yes (4) CVA (cerebral vascular accident) SNOMED Code(s): 130436564 ICD Code: I63.9 - CEREBRAL INFARCTION, UNSPECIFIED Status: Acute Current Visit: Yes (5) Dementia SNOMED Code(s): 34268740 ICD Code: F03.90 - UNSPECIFIED DEMENTIA WITHOUT BEHAVIORAL DISTURBANCE Status: Acute Current Visit: Yes Problem List Initiated/Reviewed/Updated: Yes Orders Last 24hrs: Active Orders 24 hr Category Date Time Status Admission Status [Patient Status] [ADT] Stat ADT 02/23/21 15:22 Active Cardiac Monitoring [RC] . DIRECTED Care 02/23/21 15:22 Active EKG 12 Lead [EKG Documentation Completion] [RC] STAT Care 02/23/21 13:12 Active Santoro Catheter Insertion [Insert Urinary Catheter] [OM. Care 02/23/21 14:30 Ordered PC] Q24H Oxygen Therapy, ED [RC] ASDIRECTED Care 02/23/21 13:14 Active Urinary Catheter Assessment [RC] ASDIRECTED Care 02/23/21 14:19 Active PE Chest [Ang Chest] [CT] Stat Exams 02/23/21 14:32 Ordered REFLEX LACTIC ACID YES OR NO [CHEM] Routine Lab 02/23/21 14:43 Received UA RFX WESLEY AND CULT IF INDIC [URIN] Stat Lab 02/23/21 15:20 Received Diltiazem [Cardizem] 100 mg Med 02/23/21 14:00 Active Sodium Chloride 0.9% [Normal Saline AdvBag] 100 ml IV NOW Sodium Chloride 0.9% [Normal Saline] 1,000 ml Med 02/23/21 14:52 Active IV STAT Sodium Chloride 0.9% [Saline Flush] Med 02/23/21 13:13 Active 10 ml FLUSH ASDIRECTED PRN Sodium Chloride 0.9% [Saline Flush] Med 02/23/21 13:13 Active 2.5 ml FLUSH ASDIRECTED PRN Saline Lock Insert [OM.PC] Stat Oth 02/23/21 13:14 Ordered Medication Orders Diltiazem HCl 100 mg/ Sodium (Chloride) 100 mls @ 5 mls/hr IV NOW HEIDY; Protocol Last Titration: 02/23/21 15:16 Dose: 10 mg/hr, 10 mls/hr Documented by: Admin: 02/23/21 14:02 Dose: 5 mg/hr, 5 mls/hr Documented by: AIMEE Sodium Chloride (Normal Saline) 1,000 mls @ 999 mls/hr IV STAT ONE Stop: 02/23/21 15:52 Last Admin: 02/23/21 15:18 Dose: 999 mls/hr Documented by: AIMEE Sodium Chloride (Sodium Chloride 0.9% 10 Ml Syringe) 10 ml FLUSH ASDIRECTED PRN PRN Reason: Keep Vein Open Last Admin: 02/23/21 14:14 Dose: 10 ml Documented by: AIMEE Sodium Chloride (Sodium Chloride 0.9% 2.5 Ml Syringe) 2.5 ml FLUSH ASDIRECTED PRN PRN Reason: Keep Vein Open Last Admin: 02/23/21 14:13 Dose: 2.5 ml Documented by: AIMEE Assessment/Plan Comment:: Acute respiratory failure due to covid 19 pneumonia Admit pt to the medical floor for oxygen supplementation. Pt is currently on 2 L NC. Afib with RVR Cardizem gtt. Covid 19 infection Will treat pt with Decadron and remdesivir. Anticoagulation. Renal failure likely BALDOMERO superimposed on CKD will gently hydrate pt and recheck bun/cr in am. Dementia with behavioral issues may benefit from ativan prn or haldol. History of CVA with residual left sided weakness. ASA, Statin Full code. Pt's overall prognosis is poor given his age and multiple comorbidities. I discussed with the family regarding pt's code status and the need for DNR/DNI and a hospice evaluation. - Mortality Measure Prognosis:: Poor
[2021-02-23] MEDS ORDERED: Nitroglycerin 0.4 MG Tab.SL SL PRN (15:46)
[2021-02-23] MEDS ORDERED: Acetaminophen/oxyCODONE 325-5 MG Tab PO PRN (15:46)
[2021-02-23] MEDS ORDERED: Bisacodyl 10 MG Supp RECTAL PRN (15:46)
[2021-02-23] MEDS ORDERED: Codeine/guaiFENesin 10-100 MG/5 ML Syrup 5 ML Cup PO PRN (16:07)
[2021-02-23] MEDS ORDERED: Magnesium Hydroxide 400 MG/5 ML Susp 30 ML Cup PO PRN (16:08)
--- NOTE | 2021-02-23 16:12 | PCM.EKG ---
#1 Interpretation EKG Date: 02/23/21 Time: 13:14 EKG Interpretation Comments: EKG: As interpreted by ER physician: Ricarda: Nonspecific ST-T wave abnormalities Normal axis No evidence of ST elevation MO SVT likely atrial flutter at a heart rate of 160 #2 Interpretation EKG Date: 02/23/21 Time: 15:54 EKG Interpretation Comments: EKG: As interpreted by ER physician: Ricarda: Nonspecific ST-T wave abnormalities Normal axis No evidence of ST elevation MO Atrial fibrillation/atrial flutter with a heart rate of 130
[2021-02-23] MEDS ORDERED: Dexamethasone 4 MG/ML SDV IVPUSH SCH (17:45)
[2021-02-23] MEDS: LORazepam 2 MG/ML SDV IVPUSH PRN (18:00)
[2021-02-23] MEDS: Morphine 2 MG/ML SYRINGE IVPUSH PRN ×2 (18:00→23:16)
[2021-02-23] MEDS ORDERED: Sodium Chloride 0.9% 500 ML IV SCH (18:15)
--- NOTE | 2021-02-23 19:49 | PN ---
THC Physician - Brief Progress [id number]/02/2021 19:33[facility] Ho [place]aur, [place] - MWN [facility] - ANTHONY [place] REARDON of Service 02/23/2021 19:33HPI/Events of Not e eICU Admission Note89 y/o male with PMH of dementia, CVA with hemiplegia, HTN and DM. Per documentt ion he is mostly non-verbal but responds to name by yelling. [facility] He was vin gnosed with Covid on 02/17, he recieved monoclonal antibodies on the 02/19. Patient has had decrease appetite and oral intake and today he was found tachycardic in the 130s-160s and hypoxemic with sat 83 on RA. Work up significant for CXR showing patchy airspace disease, Na 151, K 5.5, Cr 2.1 Lactic a sampson 2.9. Patient was admitted to ICU.Per RN report, patient was very agitated this evening, and recei dhara morphine and ativan. Currently sleeping on 4L O2. Assessment:Covid pneumoniaAKI - likely pre-nazanin l due to poor oral intakeHypernatremia - likely due to poor oral intake and hypovolemiaAdvanced michelle Barry Recommendations:Covid treatment per hospital guidelinesContinue supplemental [id number] resuscit ationStart DVT prophylaxisContinue GI prophylaxisSelf proning not indicated given hemiplegia and adva nced dementiaThank you for allowing us to participate in the care of your patient.Interventions Major -Hypoxemia - evaluation and management, Infection - evaluation and managementIntermediate-Communicati on with other healthcare providers and/or familyElectronically Signed by: MARCELLE JIN) on 2020 19:48
--- NOTE | 2021-02-23 19:51 | PN ---
THC Physician - Brief Progress [id number]/02/2021 19:49[facility] Ho ruiz, VAZQUEZ - ANTHONY (ANASTACIA) - ANTHONY WYLIENy LUNDBERG of Service 02/23/2021 19:49HPI/Events of Not e eICU Admission NoteAddendum to initial admission notePatient found on afib with RVR, likely in the setting of hypoxia and hypovolemia. No indication for anticoagulation. Improved at this timeThank you for allowing us to participate in the care of your patient.Interventions Major-Arrhythmia - evaluati on and managementIntermediate-Communication with other healthcare providers and/or familyElectronical ly Signed by: MARCELLE JIN) on 02/23/2021 19:51
[2021-02-23] MEDS: Mirtazapine 15 MG Tab PO SCH ×2 (20:23→20:52)
[2021-02-23] MEDS: Diltiazem 100 MG in Sodium Chloride 0.9% 100 ML IV SCH (20:24)
[2021-02-23] MEDS: hydrOXYzine HCl 25 MG Tab PO SCH ×2 (20:24→20:53)
[2021-02-23] MEDS: Docusate Sodium 100 MG Cap PO SCH (20:52)
[2021-02-23] MEDS ORDERED: Sennosides 8.6 MG Tab PO SCH (21:00)
[2021-02-23] MEDS ORDERED: [UNRECOGNIZED DRUG - REMARK] PO SCH (21:00)
[2021-02-23] MEDS ORDERED: Albuterol 0.083% 2.5 MG/3 ML Neb Soln INH SCH (21:00)
[2021-02-23] MEDS: Albuterol/Ipratropium 3.0-0.5 MG/3 ML Neb Soln NEB SCH (21:43)
[2021-02-24] MEDS ORDERED: Heparin Sodium/0.45% NaCl 500 ML IV SCH (00:15)
[2021-02-24] MEDS ORDERED: Heparin Sodium 5,000 Units/ML Vial IVPUSH ONE (00:30)
[2021-02-24] MEDS: LORazepam 2 MG/ML SDV IVPUSH PRN ×2 (01:31→22:40)
[2021-02-24] MEDS: Albuterol/Ipratropium 3.0-0.5 MG/3 ML Neb Soln NEB SCH ×5 (01:33→18:10)
--- NOTE | 2021-02-24 01:56 | PN ---
THC Physician - Brief Progress [id number]/03/2021 01:52[facility] asra [place], VAZQUEZ - ANTHONY (ANASTACIA) - Ny BURCIAGA of Service 02/24/2021 01:52HPI/Events of Not e in atrial fibrillation and with h/o CVA even though he has aphasia and hemiplegia he is high risk f or thromboembolismAlso with elevated ddimer and with COVID infectionPlan:initiated heparin bolus and dripcheck glucose nowInterventions Major-Arrhythmia - evaluation and management, Hyperglycemia - act jaida titration of insulin therapyIntermediate-Coagulopathy - evaluation and managementElectronically S igned by: Chandni MEDINA) on 02/24/2021 01:55
[2021-02-24] MEDS: Morphine 2 MG/ML SYRINGE IVPUSH PRN ×5 (03:40→22:27)
[2021-02-24] MEDS: Diltiazem 100 MG in Sodium Chloride 0.9% 100 ML IV SCH ×2 (05:28→13:53)
[2021-02-24] MEDS ORDERED: Omeprazole 20 MG Cap.CR PO SCH (06:30)
[2021-02-24] MEDS ORDERED: amLODIPine 5 MG Tab PO SCH (09:00)
[2021-02-24] MEDS ORDERED: RIVASTIGMINE TARTRATE 4.5 MG PO SCH (09:00)
[2021-02-24] MEDS ORDERED: predniSONE 20 MG Tab PO SCH (09:00)
[2021-02-24] MEDS ORDERED: Aspirin 81 MG Tab.Chew PO SCH (09:00)
[2021-02-24] MEDS: Docusate Sodium 100 MG Cap PO SCH (09:26)
[2021-02-24] MEDS: hydrOXYzine HCl 25 MG Tab PO SCH (09:26)
[2021-02-24] MEDS ORDERED: Amiodarone 200 MG Tab PO SCH (10:30)
[2021-02-24] MEDS ORDERED: Diltiazem 25 MG/5 ML SDV IVPUSH ONE (11:21)
--- NOTE | 2021-02-24 13:45 | PCM.PN ---
<Erma Reed - Last Filed: 02/24/21 13:37> - General Info Date of Service: 02/24/21 Subjective Update: The patient is an 89-year-old [place] male, on day 2 of service, from [facility], who has a significant past medical history of CVA, hemiplegia, hypertension, diabetes mellitus, GERD, and depression, who was admitted to the intensive care unit due to acute respiratory failure secondary to COVID-19 pneumonia and A. fib with RVR. Upon interview with the patient today he is a poor historian and cannot give a detailed history on what his symptoms are. He is currently saturating 92% on 6 L of oxygen and being treated with different COVID-19 protocol medications. He is also on a Cardizem drip for his A. fib with RVR and on telemetry. Much of his history was obtained from the ICU nurse who contacted [facility]. We will continue to monitor this patient for improvement/deterioration and treat him accordingly. - Review of Systems General: Reports: Other (Patient is a poor historian and cannot answer questions) - Patient Data Vitals - Most Recent: Last Vital Signs Temp 96.8 F L 02/24/21 12:00 Pulse 109 H 02/24/21 07:00 Resp 26 H 02/24/21 12:00 BP 119/54 L 02/24/21 12:00 Pulse Ox 90 L 02/24/21 12:00 Weight - Most Recent: 145 lb 11.609 oz I&O - Last 24 Hours: Intake & Output 02/23/21 02/24/21 02/24/21 22:59 06:59 14:59 Intake Total 787 Output Total 350 Balance 437 Lab Results Last 24 Hours: Laboratory Results - last 24 hr 02/23/21 02/23/21 02/23/21 Range/Units 13:30 13:30 13:30 WBC 10.95 (4.0-11.0) K/uL RBC 4.95 (4.50-5.90) M/uL Hgb 15.1 (13.0-17.0) g/dL Hct 46.1 (38.0-50.0) % MCV 93.1 (80.0-98.0) fL MCH 30.5 (27.0-32.0) pg MCHC 32.8 (31.0-37.0) g/dL RDW Std Deviation 48.9 (28.0-62.0) fl RDW Coeff of Will 15 (11.0-15.0) % Plt Count 346 (150-400) K/uL MPV 10.20 (7.40-12.00) fL Add Manual Diff YES Neutrophils % (Manual) 89 H (48.0-80.0) % Band Neutrophils % 3 % Lymphocytes % (Manual) 4 L (16.0-40.0) % Monocytes % (Manual) 2 (0.0-15.0) % Metamyelocytes % 1 % Myelocytes % 1 % Nucleated RBC % 5.9 /100WBC Absolute Seg Neuts 9.7 H (1.4-5.7) Band Neutrophils # 0.3 Lymphocytes # (Manual) 0.4 L (0.6-2.4) Monocytes # (Manual) 0.2 (0.0-0.8) Absolute Metamyelocyte 0.1 Absolute Myelocytes 0.1 Nucleated RBCs # 1 K/uL APTT (18.6-31.3) SEC D-Dimer, Quantitative 3.28 H (0.0-0.50) mg/L FEU Sodium 151 H (136-148) mmol/L Potassium 5.5 H (3.5-5.1) mmol/L Chloride 114 H (98-107) mmol/L Carbon Dioxide 22.7 (21.0-32.0) mmol/L BUN 68 H (7.0-18.0) mg/dL Creatinine 2.1 H (0.8-1.3) mg/dL Est Cr Clr Drug Dosing 20.36 mL/min Estimated GFR (MDRD) 30.0 ml/min Glucose 214 H (74-106) mg/dL POC Glucose (70-99) mg/dL Lactic Acid (0.4-2.0) mmol/L Calcium 10.3 H (8.5-10.1) mg/dL Magnesium 2.6 H (1.8-2.4) mg/dL Total Bilirubin 0.6 (0.2-1.0) mg/dL AST 33 (15-37) IU/L ALT 43 (14-63) IU/L Alkaline Phosphatase 157 H (46-116) U/L Troponin I 0.357 H* (0.000-0.056) ng/mL Total Protein 7.2 (6.4-8.2) g/dL Albumin 2.3 L (3.4-5.0) g/dL Globulin 4.9 H (2.6-4.0) g/dL Albumin/Globulin Ratio 0.5 L (0.9-1.6) Urine Color Urine Appearance Urine pH (5.0-8.0) Ur Specific Wilson (1.001-1.035) Urine Protein (NEGATIVE) mg/dL Urine Glucose (UA) (NEGATIVE) mg/dL Urine Ketones (NEGATIVE) mg/dL Urine Occult Blood (NEGATIVE) Urine Nitrite (NEGATIVE) Urine Bilirubin (NEGATIVE) Urine Urobilinogen (<2.0) EU/dL Ur Leukocyte Esterase (NEGATIVE) Urine RBC (0-2/HPF) Urine WBC (0-5/HPF) Ur Epithelial Cells (NONE-FEW) Urine Bacteria (NEGATIVE) Influenza Type A RNA (NEGATIVE) Influenza Type B RNA (NEGATIVE) SARS-CoV-2 RNA (ALESSANDRA) (NEGATIVE) 02/23/21 02/23/21 02/23/21 Range/Units 13:56 14:05 15:20 WBC (4.0-11.0) K/uL RBC (4.50-5.90) M/uL Hgb (13.0-17.0) g/dL Hct (38.0-50.0) % MCV (80.0-98.0) fL MCH (27.0-32.0) pg MCHC (31.0-37.0) g/dL RDW Std Deviation (28.0-62.0) fl RDW Coeff of Will (11.0-15.0) % Plt Count (150-400) K/uL MPV (7.40-12.00) fL Add Manual Diff Neutrophils % (Manual) (48.0-80.0) % Band Neutrophils % % Lymphocytes % (Manual) (16.0-40.0) % Monocytes % (Manual) (0.0-15.0) % Metamyelocytes % % Myelocytes % % Nucleated RBC % /100WBC Absolute Seg Neuts (1.4-5.7) Band Neutrophils # Lymphocytes # (Manual) (0.6-2.4) Monocytes # (Manual) (0.0-0.8) Absolute Metamyelocyte Absolute Myelocytes Nucleated RBCs # K/uL APTT (18.6-31.3) SEC D-Dimer, Quantitative (0.0-0.50) mg/L FEU Sodium (136-148) mmol/L Potassium (3.5-5.1) mmol/L Chloride (98-107) mmol/L Carbon Dioxide (21.0-32.0) mmol/L BUN (7.0-18.0) mg/dL Creatinine (0.8-1.3) mg/dL Est Cr Clr Drug Dosing mL/min Estimated GFR (MDRD) ml/min Glucose (74-106) mg/dL POC Glucose (70-99) mg/dL Lactic Acid 2.9 H* (0.4-2.0) mmol/L Calcium (8.5-10.1) mg/dL Magnesium (1.8-2.4) mg/dL Total Bilirubin (0.2-1.0) mg/dL AST (15-37) IU/L ALT (14-63) IU/L Alkaline Phosphatase (46-116) U/L Troponin I (0.000-0.056) ng/mL Total Protein (6.4-8.2) g/dL Albumin (3.4-5.0) g/dL Globulin (2.6-4.0) g/dL Albumin/Globulin Ratio (0.9-1.6) Urine Color YELLOW Urine Appearance HAZY Urine pH 5.5 (5.0-8.0) Ur Specific Wilson 1.020 (1.001-1.035) Urine Protein NEGATIVE (NEGATIVE) mg/dL Urine Glucose (UA) NEGATIVE (NEGATIVE) mg/dL Urine Ketones 15 H (NEGATIVE) mg/dL Urine Occult Blood SMALL H (NEGATIVE) Urine Nitrite NEGATIVE (NEGATIVE) Urine Bilirubin SMALL H (NEGATIVE) Urine Urobilinogen 0.2 (<2.0) EU/dL Ur Leukocyte Esterase NEGATIVE (NEGATIVE) Urine RBC 1-4 (0-2/HPF) Urine WBC 0-2 (0-5/HPF) Ur Epithelial Cells RARE (NONE-FEW) Urine Bacteria RARE (NEGATIVE) Influenza Type A RNA NEGATIVE (NEGATIVE) Influenza Type B RNA NEGATIVE (NEGATIVE) SARS-CoV-2 RNA (ALESSANDRA) POSITIVE H (NEGATIVE) 02/24/21 02/24/21 02/24/21 Range/Units 00:30 02:12 05:54 WBC (4.0-11.0) K/uL RBC (4.50-5.90) M/uL Hgb (13.0-17.0) g/dL Hct (38.0-50.0) % MCV (80.0-98.0) fL MCH (27.0-32.0) pg MCHC (31.0-37.0) g/dL RDW Std Deviation (28.0-62.0) fl RDW Coeff of Will (11.0-15.0) % Plt Count (150-400) K/uL MPV (7.40-12.00) fL Add Manual Diff Neutrophils % (Manual) (48.0-80.0) % Band Neutrophils % % Lymphocytes % (Manual) (16.0-40.0) % Monocytes % (Manual) (0.0-15.0) % Metamyelocytes % % Myelocytes % % Nucleated RBC % /100WBC Absolute Seg Neuts (1.4-5.7) Band Neutrophils # Lymphocytes # (Manual) (0.6-2.4) Monocytes # (Manual) (0.0-0.8) Absolute Metamyelocyte Absolute Myelocytes Nucleated RBCs # K/uL APTT 24.6 (18.6-31.3) SEC D-Dimer, Quantitative (0.0-0.50) mg/L FEU Sodium (136-148) mmol/L Potassium (3.5-5.1) mmol/L Chloride (98-107) mmol/L Carbon Dioxide (21.0-32.0) mmol/L BUN (7.0-18.0) mg/dL Creatinine (0.8-1.3) mg/dL Est Cr Clr Drug Dosing mL/min Estimated GFR (MDRD) ml/min Glucose (74-106) mg/dL POC Glucose 190 H 168 H (70-99) mg/dL Lactic Acid (0.4-2.0) mmol/L Calcium (8.5-10.1) mg/dL Magnesium (1.8-2.4) mg/dL Total Bilirubin (0.2-1.0) mg/dL AST (15-37) IU/L ALT (14-63) IU/L Alkaline Phosphatase (46-116) U/L Troponin I (0.000-0.056) ng/mL Total Protein (6.4-8.2) g/dL Albumin (3.4-5.0) g/dL Globulin (2.6-4.0) g/dL Albumin/Globulin Ratio (0.9-1.6) Urine Color Urine Appearance Urine pH (5.0-8.0) Ur Specific Wilson (1.001-1.035) Urine Protein (NEGATIVE) mg/dL Urine Glucose (UA) (NEGATIVE) mg/dL Urine Ketones (NEGATIVE) mg/dL Urine Occult Blood (NEGATIVE) Urine Nitrite (NEGATIVE) Urine Bilirubin (NEGATIVE) Urine Urobilinogen (<2.0) EU/dL Ur Leukocyte Esterase (NEGATIVE) Urine RBC (0-2/HPF) Urine WBC (0-5/HPF) Ur Epithelial Cells (NONE-FEW) Urine Bacteria (NEGATIVE) Influenza Type A RNA (NEGATIVE) Influenza Type B RNA (NEGATIVE) SARS-CoV-2 RNA (ALESSANDRA) (NEGATIVE) 02/24/21 02/24/21 02/24/21 Range/Units 06:15 06:15 12:02 WBC (4.0-11.0) K/uL RBC (4.50-5.90) M/uL Hgb (13.0-17.0) g/dL Hct (38.0-50.0) % MCV (80.0-98.0) fL MCH (27.0-32.0) pg MCHC (31.0-37.0) g/dL RDW Std Deviation (28.0-62.0) fl RDW Coeff of Will (11.0-15.0) % Plt Count (150-400) K/uL MPV (7.40-12.00) fL Add Manual Diff Neutrophils % (Manual) (48.0-80.0) % Band Neutrophils % % Lymphocytes % (Manual) (16.0-40.0) % Monocytes % (Manual) (0.0-15.0) % Metamyelocytes % % Myelocytes % % Nucleated RBC % /100WBC Absolute Seg Neuts (1.4-5.7) Band Neutrophils # Lymphocytes # (Manual) (0.6-2.4) Monocytes # (Manual) (0.0-0.8) Absolute Metamyelocyte Absolute Myelocytes Nucleated RBCs # K/uL APTT 154.0 H (18.6-31.3) SEC D-Dimer, Quantitative (0.0-0.50) mg/L FEU Sodium (136-148) mmol/L Potassium (3.5-5.1) mmol/L Chloride (98-107) mmol/L Carbon Dioxide (21.0-32.0) mmol/L BUN (7.0-18.0) mg/dL Creatinine (0.8-1.3) mg/dL Est Cr Clr Drug Dosing mL/min Estimated GFR (MDRD) ml/min Glucose (74-106) mg/dL POC Glucose 206 H (70-99) mg/dL Lactic Acid 2.6 H* (0.4-2.0) mmol/L Calcium (8.5-10.1) mg/dL Magnesium (1.8-2.4) mg/dL Total Bilirubin (0.2-1.0) mg/dL AST (15-37) IU/L ALT (14-63) IU/L Alkaline Phosphatase (46-116) U/L Troponin I (0.000-0.056) ng/mL Total Protein (6.4-8.2) g/dL Albumin (3.4-5.0) g/dL Globulin (2.6-4.0) g/dL Albumin/Globulin Ratio (0.9-1.6) Urine Color Urine Appearance Urine pH (5.0-8.0) Ur Specific Wilson (1.001-1.035) Urine Protein (NEGATIVE) mg/dL Urine Glucose (UA) (NEGATIVE) mg/dL Urine Ketones (NEGATIVE) mg/dL Urine Occult Blood (NEGATIVE) Urine Nitrite (NEGATIVE) Urine Bilirubin (NEGATIVE) Urine Urobilinogen (<2.0) EU/dL Ur Leukocyte Esterase (NEGATIVE) Urine RBC (0-2/HPF) Urine WBC (0-5/HPF) Ur Epithelial Cells (NONE-FEW) Urine Bacteria (NEGATIVE) Influenza Type A RNA (NEGATIVE) Influenza Type B RNA (NEGATIVE) SARS-CoV-2 RNA (ALESSANDRA) (NEGATIVE) 02/24/21 Range/Units 12:35 WBC (4.0-11.0) K/uL RBC (4.50-5.90) M/uL Hgb (13.0-17.0) g/dL Hct (38.0-50.0) % MCV (80.0-98.0) fL MCH (27.0-32.0) pg MCHC (31.0-37.0) g/dL RDW Std Deviation (28.0-62.0) fl RDW Coeff of Will (11.0-15.0) % Plt Count (150-400) K/uL MPV (7.40-12.00) fL Add Manual Diff Neutrophils % (Manual) (48.0-80.0) % Band Neutrophils % % Lymphocytes % (Manual) (16.0-40.0) % Monocytes % (Manual) (0.0-15.0) % Metamyelocytes % % Myelocytes % % Nucleated RBC % /100WBC Absolute Seg Neuts (1.4-5.7) Band Neutrophils # Lymphocytes # (Manual) (0.6-2.4) Monocytes # (Manual) (0.0-0.8) Absolute Metamyelocyte Absolute Myelocytes Nucleated RBCs # K/uL APTT 106.0 H (18.6-31.3) SEC D-Dimer, Quantitative (0.0-0.50) mg/L FEU Sodium (136-148) mmol/L Potassium (3.5-5.1) mmol/L Chloride (98-107) mmol/L Carbon Dioxide (21.0-32.0) mmol/L BUN (7.0-18.0) mg/dL Creatinine (0.8-1.3) mg/dL Est Cr Clr Drug Dosing mL/min Estimated GFR (MDRD) ml/min Glucose (74-106) mg/dL POC Glucose (70-99) mg/dL Lactic Acid (0.4-2.0) mmol/L Calcium (8.5-10.1) mg/dL Magnesium (1.8-2.4) mg/dL Total Bilirubin (0.2-1.0) mg/dL AST (15-37) IU/L ALT (14-63) IU/L Alkaline Phosphatase (46-116) U/L Troponin I (0.000-0.056) ng/mL Total Protein (6.4-8.2) g/dL Albumin (3.4-5.0) g/dL Globulin (2.6-4.0) g/dL Albumin/Globulin Ratio (0.9-1.6) Urine Color Urine Appearance Urine pH (5.0-8.0) Ur Specific Wilson (1.001-1.035) Urine Protein (NEGATIVE) mg/dL Urine Glucose (UA) (NEGATIVE) mg/dL Urine Ketones (NEGATIVE) mg/dL Urine Occult Blood (NEGATIVE) Urine Nitrite (NEGATIVE) Urine Bilirubin (NEGATIVE) Urine Urobilinogen (<2.0) EU/dL Ur Leukocyte Esterase (NEGATIVE) Urine RBC (0-2/HPF) Urine WBC (0-5/HPF) Ur Epithelial Cells (NONE-FEW) Urine Bacteria (NEGATIVE) Influenza Type A RNA (NEGATIVE) Influenza Type B RNA (NEGATIVE) SARS-CoV-2 RNA (ALESSANDRA) (NEGATIVE) Med Orders - Current: Current Medications Albuterol/Ipratropium (Albuterol/Ipratropium 3.0-0.5 Mg/3 Ml Neb Soln) 3 ml NEB Q4HRRT [facility] Last Admin: 02/24/21 09:54 Dose: 3 ml Documented by: Amlodipine Besylate (Amlodipine 5 Mg Tab) 5 mg PO DAILY [facility] Last Admin: 02/24/21 09:26 Dose: Not Given Documented by: Aspirin (Aspirin 81 Mg Tab.Chew) 81 mg PO DAILY [facility] Last Admin: 02/24/21 09:26 Dose: Not Given Documented by: Bisacodyl (Bisacodyl 10 Mg Supp) 10 mg RECTAL DAILY PRN PRN Reason: Constipation Dexamethasone (Dexamethasone 10 Mg/Ml Sdv) 6 mg IVPUSH Q24H [facility] Docusate Sodium (Docusate Sodium 100 Mg Cap) 100 mg PO BID [facility] Last Admin: 02/24/21 09:26 Dose: Not Given Documented by: Guaifenesin/Codeine Phosphate (Codeine/Guaifenesin 10-100 Mg/5 Ml Syrup 5 Ml Cup) 5 ml PO Q4H PRN PRN Reason: Cough Hydroxyzine HCl (Hydroxyzine Hcl 25 Mg Tab) 25 mg PO BID [facility] Last Admin: 02/24/21 09:26 Dose: Not Given Documented by: Remdesivir 100 mg/ Sodium (Chloride) 100 mls @ 100 mls/hr IV Q24H [facility] Stop: 02/27/21 18:44 Diltiazem HCl 100 mg/ Sodium (Chloride) 100 mls @ 5 mls/hr IV ASDIRECTED [facility]; Protocol Last Titration: 02/24/21 11:33 Dose: 15 mg/hr, 15 mls/hr Documented by: Sodium Chloride (Normal Saline) 500 mls @ 75 mls/hr IV ASDIRECTED [facility] Last Admin: 02/23/21 20:55 Dose: 75 mls/hr Documented by: Heparin Sodium/Sodium Chloride (Heparin 25,000 Units In 1/2 Ns 500 Ml) 500 mls @ 24.516 mls/hr IV TITRATE [facility]; Protocol Last Titration: 02/24/21 09:10 Dose: 15 units/kg/hr, 20.43 mls/hr Documented by: Lorazepam (Lorazepam 2 Mg/Ml Sdv) 0.5 mg IVPUSH Q6HR PRN PRN Reason: Agitation Last Admin: 02/24/21 01:31 Dose: 0.5 mg Documented by: Magnesium Hydroxide (Magnesium Hydroxide 400 Mg/5 Ml Susp 30 Ml Cup) 30 ml PO DAILY PRN PRN Reason: Constipation Mirtazapine (Mirtazapine 15 Mg Tab) 7.5 mg PO BEDTIME [facility] Last Admin: 02/23/21 20:52 Dose: Not Given Documented by: Morphine Sulfate (Morphine 2 Mg/Ml Syringe) 2 mg IVPUSH Q2H PRN PRN Reason: Pain Last Admin: 02/24/21 09:53 Dose: 2 mg Documented by: Nitroglycerin (Nitroglycerin 0.4 Mg Tab.Sl) 0.4 mg SL .Q5MIN PRN PRN Reason: Chest Pain Omeprazole (Omeprazole 20 Mg Cap.Cr) 20 mg PO DAILY@0630 [facility] Last Admin: 02/24/21 06:39 Dose: Not Given Documented by: Oxycodone/Acetaminophen (Acetaminophen/Oxycodone 325-5 Mg Tab) 1 tab PO Q6H PRN PRN Reason: Pain Rivastigmine Tartrate [ Rivastigmine] 4.5 Mg Capsule 1 each PO DAILY [facility] Last Admin: 02/24/21 09:27 Dose: Not Given Documented by: Senna (Sennosides 8.6 Mg Tab) 17.2 mg PO BEDTIME [facility] Last Admin: 02/23/21 20:52 Dose: Not Given Documented by: Sodium Chloride (Sodium Chloride 0.9% 10 Ml Syringe) 10 ml FLUSH ASDIRECTED PRN PRN Reason: Keep Vein Open Last Admin: 02/23/21 14:14 Dose: 10 ml Documented by: Sodium Chloride (Sodium Chloride 0.9% 2.5 Ml Syringe) 2.5 ml FLUSH ASDIRECTED PRN PRN Reason: Keep Vein Open Last Admin: 02/23/21 14:13 Dose: 2.5 ml Documented by: Discontinued Medications Adenosine (Adenosine 6 Mg/2 Ml Sdv) 12 mg IVPUSH NOW ONE Stop: 02/23/21 14:59 Last Admin: 02/23/21 15:29 Dose: 12 mg Documented by: Albuterol (Albuterol 0.083% 2.5 Mg/3 Ml Neb Soln) 2.5 mg INH QIDRT [facility] Amiodarone HCl (Amiodarone 200 Mg Tab) 400 mg PO BID [facility] Last Admin: 02/24/21 11:39 Dose: Not Given Documented by: Dexamethasone (Dexamethasone 4 Mg/Ml Sdv) 6 mg IVPUSH ONETIME ONE Stop: 02/23/21 14:28 Last Admin: 02/23/21 15:26 Dose: 6 mg Documented by: Dexamethasone (Dexamethasone 4 Mg/Ml Sdv) 6 mg IVPUSH Q6H [facility] Stop: 03/04/21 17:46 Diltiazem HCl (Diltiazem 25 Mg/5 Ml Sdv) 15 mg IVPUSH ONETIME ONE Stop: 02/23/21 15:18 Last Admin: 02/23/21 15:27 Dose: 15 mg Documented by: Diltiazem HCl (Diltiazem 25 Mg/5 Ml Sdv) 5 mg IVPUSH BOLUS ONE Stop: 02/24/21 11:22 Last Admin: 02/24/21 11:31 Dose: 5 mg Documented by: Heparin Sodium (Porcine) (Heparin Sodium 5,000 Units/Ml Vial) 5,000 units IVPUSH ONETIME ONE Stop: 02/24/21 00:31 Last Admin: 02/24/21 01:13 Dose: 5,000 units Documented by: Sodium Chloride (Normal Saline) 1,000 mls @ 999 mls/hr IV STAT ONE Stop: 02/23/21 14:19 Last Admin: 02/23/21 13:54 Dose: 999 mls/hr Documented by: Diltiazem HCl 100 mg/ Sodium (Chloride) 100 mls @ 5 mls/hr IV NOW [facility]; Protocol Last Titration: 02/23/21 17:30 Dose: 15 mg/hr, 15 mls/hr Documented by: Remdesivir 200 mg/ Sodium (Chloride) 250 mls @ 250 mls/hr IV ONETIME ONE Stop: 02/23/21 14:28 Last Admin: 02/23/21 15:21 Dose: 250 mls/hr Documented by: Sodium Chloride (Normal Saline) 1,000 mls @ 999 mls/hr IV STAT ONE Stop: 02/23/21 15:52 Last Admin: 02/23/21 15:18 Dose: 999 mls/hr Documented by: Prednisone (Prednisone 20 Mg Tab) 20 mg PO DAILY [facility] - Exam Urinary Catheter Total Time: 0Days 19Hours General: Obtunded HEENT: Other (Dry mucous membranes) Neck: Trachea Midline Lungs: Clear to Auscultation, Normal Respiratory Effort Cardiovascular: Tachycardia GI/Abdominal Exam: Normal Bowel Sounds, Soft Extremities: No Pedal Edema - Patient Data Lab Results Last 24 hrs: Laboratory Results - last 24 hr 02/23/21 02/23/21 02/23/21 Range/Units 13:30 13:30 13:30 WBC 10.95 (4.0-11.0) K/uL RBC 4.95 (4.50-5.90) M/uL Hgb 15.1 (13.0-17.0) g/dL Hct 46.1 (38.0-50.0) % MCV 93.1 (80.0-98.0) fL MCH 30.5 (27.0-32.0) pg MCHC 32.8 (31.0-37.0) g/dL RDW Std Deviation 48.9 (28.0-62.0) fl RDW Coeff of Will 15 (11.0-15.0) % Plt Count 346 (150-400) K/uL MPV 10.20 (7.40-12.00) fL Add Manual Diff YES Neutrophils % (Manual) 89 H (48.0-80.0) % Band Neutrophils % 3 % Lymphocytes % (Manual) 4 L (16.0-40.0) % Monocytes % (Manual) 2 (0.0-15.0) % Metamyelocytes % 1 % Myelocytes % 1 % Nucleated RBC % 5.9 /100WBC Absolute Seg Neuts 9.7 H (1.4-5.7) Band Neutrophils # 0.3 Lymphocytes # (Manual) 0.4 L (0.6-2.4) Monocytes # (Manual) 0.2 (0.0-0.8) Absolute Metamyelocyte 0.1 Absolute Myelocytes 0.1 Nucleated RBCs # 1 K/uL APTT (18.6-31.3) SEC D-Dimer, Quantitative 3.28 H (0.0-0.50) mg/L FEU Sodium 151 H (136-148) mmol/L Potassium 5.5 H (3.5-5.1) mmol/L Chloride 114 H (98-107) mmol/L Carbon Dioxide 22.7 (21.0-32.0) mmol/L BUN 68 H (7.0-18.0) mg/dL Creatinine 2.1 H (0.8-1.3) mg/dL Est Cr Clr Drug Dosing 20.36 mL/min Estimated GFR (MDRD) 30.0 ml/min Glucose 214 H (74-106) mg/dL POC Glucose (70-99) mg/dL Lactic Acid (0.4-2.0) mmol/L Calcium 10.3 H (8.5-10.1) mg/dL Magnesium 2.6 H (1.8-2.4) mg/dL Total Bilirubin 0.6 (0.2-1.0) mg/dL AST 33 (15-37) IU/L ALT 43 (14-63) IU/L Alkaline Phosphatase 157 H (46-116) U/L Troponin I 0.357 H* (0.000-0.056) ng/mL Total Protein 7.2 (6.4-8.2) g/dL Albumin 2.3 L (3.4-5.0) g/dL Globulin 4.9 H (2.6-4.0) g/dL Albumin/Globulin Ratio 0.5 L (0.9-1.6) Urine Color Urine Appearance Urine pH (5.0-8.0) Ur Specific Wilson (1.001-1.035) Urine Protein (NEGATIVE) mg/dL Urine Glucose (UA) (NEGATIVE) mg/dL Urine Ketones (NEGATIVE) mg/dL Urine Occult Blood (NEGATIVE) Urine Nitrite (NEGATIVE) Urine Bilirubin (NEGATIVE) Urine Urobilinogen (<2.0) EU/dL Ur Leukocyte Esterase (NEGATIVE) Urine RBC (0-2/HPF) Urine WBC (0-5/HPF) Ur Epithelial Cells (NONE-FEW) Urine Bacteria (NEGATIVE) Influenza Type A RNA (NEGATIVE) Influenza Type B RNA (NEGATIVE) SARS-CoV-2 RNA (ALESSANDRA) (NEGATIVE) 02/23/21 02/23/21 02/23/21 Range/Units 13:56 14:05 15:20 WBC (4.0-11.0) K/uL RBC (4.50-5.90) M/uL Hgb (13.0-17.0) g/dL Hct (38.0-50.0) % MCV (80.0-98.0) fL MCH (27.0-32.0) pg MCHC (31.0-37.0) g/dL RDW Std Deviation (28.0-62.0) fl RDW Coeff of Will (11.0-15.0) % Plt Count (150-400) K/uL MPV (7.40-12.00) fL Add Manual Diff Neutrophils % (Manual) (48.0-80.0) % Band Neutrophils % % Lymphocytes % (Manual) (16.0-40.0) % Monocytes % (Manual) (0.0-15.0) % Metamyelocytes % % Myelocytes % % Nucleated RBC % /100WBC Absolute Seg Neuts (1.4-5.7) Band Neutrophils # Lymphocytes # (Manual) (0.6-2.4) Monocytes # (Manual) (0.0-0.8) Absolute Metamyelocyte Absolute Myelocytes Nucleated RBCs # K/uL APTT (18.6-31.3) SEC D-Dimer, Quantitative (0.0-0.50) mg/L FEU Sodium (136-148) mmol/L Potassium (3.5-5.1) mmol/L Chloride (98-107) mmol/L Carbon Dioxide (21.0-32.0) mmol/L BUN (7.0-18.0) mg/dL Creatinine (0.8-1.3) mg/dL Est Cr Clr Drug Dosing mL/min Estimated GFR (MDRD) ml/min Glucose (74-106) mg/dL POC Glucose (70-99) mg/dL Lactic Acid 2.9 H* (0.4-2.0) mmol/L Calcium (8.5-10.1) mg/dL Magnesium (1.8-2.4) mg/dL Total Bilirubin (0.2-1.0) mg/dL AST (15-37) IU/L ALT (14-63) IU/L Alkaline Phosphatase (46-116) U/L Troponin I (0.000-0.056) ng/mL Total Protein (6.4-8.2) g/dL Albumin (3.4-5.0) g/dL Globulin (2.6-4.0) g/dL Albumin/Globulin Ratio (0.9-1.6) Urine Color YELLOW Urine Appearance HAZY Urine pH 5.5 (5.0-8.0) Ur Specific Wilson 1.020 (1.001-1.035) Urine Protein NEGATIVE (NEGATIVE) mg/dL Urine Glucose (UA) NEGATIVE (NEGATIVE) mg/dL Urine Ketones 15 H (NEGATIVE) mg/dL Urine Occult Blood SMALL H (NEGATIVE) Urine Nitrite NEGATIVE (NEGATIVE) Urine Bilirubin SMALL H (NEGATIVE) Urine Urobilinogen 0.2 (<2.0) EU/dL Ur Leukocyte Esterase NEGATIVE (NEGATIVE) Urine RBC 1-4 (0-2/HPF) Urine WBC 0-2 (0-5/HPF) Ur Epithelial Cells RARE (NONE-FEW) Urine Bacteria RARE (NEGATIVE) Influenza Type A RNA NEGATIVE (NEGATIVE) Influenza Type B RNA NEGATIVE (NEGATIVE) SARS-CoV-2 RNA (ALESSANDRA) POSITIVE H (NEGATIVE) 02/24/21 02/24/21 02/24/21 Range/Units 00:30 02:12 05:54 WBC (4.0-11.0) K/uL RBC (4.50-5.90) M/uL Hgb (13.0-17.0) g/dL Hct (38.0-50.0) % MCV (80.0-98.0) fL MCH (27.0-32.0) pg MCHC (31.0-37.0) g/dL RDW Std Deviation (28.0-62.0) fl RDW Coeff of Will (11.0-15.0) % Plt Count (150-400) K/uL MPV (7.40-12.00) fL Add Manual Diff Neutrophils % (Manual) (48.0-80.0) % Band Neutrophils % % Lymphocytes % (Manual) (16.0-40.0) % Monocytes % (Manual) (0.0-15.0) % Metamyelocytes % % Myelocytes % % Nucleated RBC % /100WBC Absolute Seg Neuts (1.4-5.7) Band Neutrophils # Lymphocytes # (Manual) (0.6-2.4) Monocytes # (Manual) (0.0-0.8) Absolute Metamyelocyte Absolute Myelocytes Nucleated RBCs # K/uL APTT 24.6 (18.6-31.3) SEC D-Dimer, Quantitative (0.0-0.50) mg/L FEU Sodium (136-148) mmol/L Potassium (3.5-5.1) mmol/L Chloride (98-107) mmol/L Carbon Dioxide (21.0-32.0) mmol/L BUN (7.0-18.0) mg/dL Creatinine (0.8-1.3) mg/dL Est Cr Clr Drug Dosing mL/min Estimated GFR (MDRD) ml/min Glucose (74-106) mg/dL POC Glucose 190 H 168 H (70-99) mg/dL Lactic Acid (0.4-2.0) mmol/L Calcium (8.5-10.1) mg/dL Magnesium (1.8-2.4) mg/dL Total Bilirubin (0.2-1.0) mg/dL AST (15-37) IU/L ALT (14-63) IU/L Alkaline Phosphatase (46-116) U/L Troponin I (0.000-0.056) ng/mL Total Protein (6.4-8.2) g/dL Albumin (3.4-5.0) g/dL Globulin (2.6-4.0) g/dL Albumin/Globulin Ratio (0.9-1.6) Urine Color Urine Appearance Urine pH (5.0-8.0) Ur Specific Wilson (1.001-1.035) Urine Protein (NEGATIVE) mg/dL Urine Glucose (UA) (NEGATIVE) mg/dL Urine Ketones (NEGATIVE) mg/dL Urine Occult Blood (NEGATIVE) Urine Nitrite (NEGATIVE) Urine Bilirubin (NEGATIVE) Urine Urobilinogen (<2.0) EU/dL Ur Leukocyte Esterase (NEGATIVE) Urine RBC (0-2/HPF) Urine WBC (0-5/HPF) Ur Epithelial Cells (NONE-FEW) Urine Bacteria (NEGATIVE) Influenza Type A RNA (NEGATIVE) Influenza Type B RNA (NEGATIVE) SARS-CoV-2 RNA (ALESSANDRA) (NEGATIVE) 02/24/21 02/24/21 02/24/21 Range/Units 06:15 06:15 12:02 WBC (4.0-11.0) K/uL RBC (4.50-5.90) M/uL Hgb (13.0-17.0) g/dL Hct (38.0-50.0) % MCV (80.0-98.0) fL MCH (27.0-32.0) pg MCHC (31.0-37.0) g/dL RDW Std Deviation (28.0-62.0) fl RDW Coeff of Will (11.0-15.0) % Plt Count (150-400) K/uL MPV (7.40-12.00) fL Add Manual Diff Neutrophils % (Manual) (48.0-80.0) % Band Neutrophils % % Lymphocytes % (Manual) (16.0-40.0) % Monocytes % (Manual) (0.0-15.0) % Metamyelocytes % % Myelocytes % % Nucleated RBC % /100WBC Absolute Seg Neuts (1.4-5.7) Band Neutrophils # Lymphocytes # (Manual) (0.6-2.4) Monocytes # (Manual) (0.0-0.8) Absolute Metamyelocyte Absolute Myelocytes Nucleated RBCs # K/uL APTT 154.0 H (18.6-31.3) SEC D-Dimer, Quantitative (0.0-0.50) mg/L FEU Sodium (136-148) mmol/L Potassium (3.5-5.1) mmol/L Chloride (98-107) mmol/L Carbon Dioxide (21.0-32.0) mmol/L BUN (7.0-18.0) mg/dL Creatinine (0.8-1.3) mg/dL Est Cr Clr Drug Dosing mL/min Estimated GFR (MDRD) ml/min Glucose (74-106) mg/dL POC Glucose 206 H (70-99) mg/dL Lactic Acid 2.6 H* (0.4-2.0) mmol/L Calcium (8.5-10.1) mg/dL Magnesium (1.8-2.4) mg/dL Total Bilirubin (0.2-1.0) mg/dL AST (15-37) IU/L ALT (14-63) IU/L Alkaline Phosphatase (46-116) U/L Troponin I (0.000-0.056) ng/mL Total Protein (6.4-8.2) g/dL Albumin (3.4-5.0) g/dL Globulin (2.6-4.0) g/dL Albumin/Globulin Ratio (0.9-1.6) Urine Color Urine Appearance Urine pH (5.0-8.0) Ur Specific Wilson (1.001-1.035) Urine Protein (NEGATIVE) mg/dL Urine Glucose (UA) (NEGATIVE) mg/dL Urine Ketones (NEGATIVE) mg/dL Urine Occult Blood (NEGATIVE) Urine Nitrite (NEGATIVE) Urine Bilirubin (NEGATIVE) Urine Urobilinogen (<2.0) EU/dL Ur Leukocyte Esterase (NEGATIVE) Urine RBC (0-2/HPF) Urine WBC (0-5/HPF) Ur Epithelial Cells (NONE-FEW) Urine Bacteria (NEGATIVE) Influenza Type A RNA (NEGATIVE) Influenza Type B RNA (NEGATIVE) SARS-CoV-2 RNA (ALESSANDRA) (NEGATIVE) 02/24/21 Range/Units 12:35 WBC (4.0-11.0) K/uL RBC (4.50-5.90) M/uL Hgb (13.0-17.0) g/dL Hct (38.0-50.0) % MCV (80.0-98.0) fL MCH (27.0-32.0) pg MCHC (31.0-37.0) g/dL RDW Std Deviation (28.0-62.0) fl RDW Coeff of Will (11.0-15.0) % Plt Count (150-400) K/uL MPV (7.40-12.00) fL Add Manual Diff Neutrophils % (Manual) (48.0-80.0) % Band Neutrophils % % Lymphocytes % (Manual) (16.0-40.0) % Monocytes % (Manual) (0.0-15.0) % Metamyelocytes % % Myelocytes % % Nucleated RBC % /100WBC Absolute Seg Neuts (1.4-5.7) Band Neutrophils # Lymphocytes # (Manual) (0.6-2.4) Monocytes # (Manual) (0.0-0.8) Absolute Metamyelocyte Absolute Myelocytes Nucleated RBCs # K/uL APTT 106.0 H (18.6-31.3) SEC D-Dimer, Quantitative (0.0-0.50) mg/L FEU Sodium (136-148) mmol/L Potassium (3.5-5.1) mmol/L Chloride (98-107) mmol/L Carbon Dioxide (21.0-32.0) mmol/L BUN (7.0-18.0) mg/dL Creatinine (0.8-1.3) mg/dL Est Cr Clr Drug Dosing mL/min Estimated GFR (MDRD) ml/min Glucose (74-106) mg/dL POC Glucose (70-99) mg/dL Lactic Acid (0.4-2.0) mmol/L Calcium (8.5-10.1) mg/dL Magnesium (1.8-2.4) mg/dL Total Bilirubin (0.2-1.0) mg/dL AST (15-37) IU/L ALT (14-63) IU/L Alkaline Phosphatase (46-116) U/L Troponin I (0.000-0.056) ng/mL Total Protein (6.4-8.2) g/dL Albumin (3.4-5.0) g/dL Globulin (2.6-4.0) g/dL Albumin/Globulin Ratio (0.9-1.6) Urine Color Urine Appearance Urine pH (5.0-8.0) Ur Specific Wilson (1.001-1.035) Urine Protein (NEGATIVE) mg/dL Urine Glucose (UA) (NEGATIVE) mg/dL Urine Ketones (NEGATIVE) mg/dL Urine Occult Blood (NEGATIVE) Urine Nitrite (NEGATIVE) Urine Bilirubin (NEGATIVE) Urine Urobilinogen (<2.0) EU/dL Ur Leukocyte Esterase (NEGATIVE) Urine RBC (0-2/HPF) Urine WBC (0-5/HPF) Ur Epithelial Cells (NONE-FEW) Urine Bacteria (NEGATIVE) Influenza Type A RNA (NEGATIVE) Influenza Type B RNA (NEGATIVE) SARS-CoV-2 RNA (ALESSANDRA) (NEGATIVE) Result Diagrams: 02/23/21 13:30 02/23/21 13:30 Sepsis Event Note - Evaluation Sepsis Screening Result: Severe Sepsis Risk - Focused Exam Vital Signs: Vital Signs Temp Pulse Resp BP BP Pulse Ox 02/24/21 12:00 96.8 F L 26 H 119/54 L 90 L 02/24/21 11:45 88 L 02/24/21 11:00 23 H 113/51 L 93 L 02/24/21 10:45 89 L 02/24/21 10:00 18 119/59 L 96 02/24/21 09:26 137/78 02/24/21 09:00 17 137/78 95 02/24/21 08:00 96.1 F L 23 H 109/49 L 96 02/24/21 07:00 109 H 96 H 118/60 24 L 02/24/21 06:00 119 H 28 H 138/75 92 L 02/24/21 05:00 113 H 26 H 101/49 L 93 L 02/24/21 04:00 97.2 F 107 H 26 H 118/74 89 L 02/24/21 03:00 113 H 32 H 123/71 94 L 02/24/21 02:00 105 H 36 H 128/65 92 L - Problem List & Annotations (1) Atrial fibrillation with RVR SNOMED Code(s): 797027559453101 Code(s): I48.91 - UNSPECIFIED ATRIAL FIBRILLATION Status: Acute Current Visit: Yes (2) COVID-19 virus infection SNOMED Code(s): 241401769 Code(s): U07.1 - COVID-19 Status: Acute Current Visit: Yes (3) CVA (cerebral vascular accident) SNOMED Code(s): 310290899 Code(s): I63.9 - CEREBRAL INFARCTION, UNSPECIFIED Status: Acute Current Visit: Yes (4) Renal insufficiency SNOMED Code(s): 324757128, 976384325 Code(s): N28.9 - DISORDER OF KIDNEY AND URETER, UNSPECIFIED Status: Acute Current Visit: Yes - Problem List Review Problem List Initiated/Reviewed/Updated: Yes - My Orders Last 24 Hours: My Active Orders 02/25/21 05:11 CBC WITH AUTO DIFF [HEME] AM 02/26/21 05:11 CBC WITH AUTO DIFF [HEME] AM 02/27/21 05:11 CBC WITH AUTO DIFF [HEME] AM - Assessment Assessment:: 1. COVID-19 pneumonia -Continue dexamethasone 6 mg -Continue remdesivir 100 mg per IV route -Continue Robitussin for cough -Wean oxygen as appropriate, currently is 92% on 6 L -Monitor patient through daily CBC 2. A. fib with RVR -Patient has a Cardizem drip in place 100 mg and normal saline -We have initiated amiodarone 400 mg twice daily -Continue with telemetry/cardiac monitoring 3. BALDOMERO -Hydrate the patient as appropriate without fluid overloading -Heparin drip of 25,000 units in half-normal saline in place for renal dosing -Continue to monitor patient through daily CMP 4. Past medical history of CVA, hypertension, anxiety, depression -Continue dosages for aspirin, statins, nitroglycerin, amlodipine, hydroxyzine, mirtazapine <Herrera Zuniga - Last Filed: 02/25/21 15:44> - Patient Data Vitals - Most Recent: Last Vital Signs Temp 97.8 F 02/25/21 08:34 Pulse 107 H 02/25/21 08:34 Resp 24 H 02/25/21 08:34 BP 136/74 02/25/21 08:34 Pulse Ox 87 L 02/25/21 08:34 I&O - Last 24 Hours: Intake & Output 02/25/21 02/25/21 02/25/21 06:59 14:59 22:59 Intake Total 0 Output Total 350 Balance -350 Lab Results Last 24 Hours: Laboratory Results - last 24 hr 02/24/21 02/24/21 Range/Units 18:21 18:45 APTT 86.4 H (18.6-31.3) SEC POC Glucose 174 H (70-99) mg/dL Med Orders - Current: Current Medications Bisacodyl (Bisacodyl 10 Mg Supp) 10 mg RECTAL DAILY PRN PRN Reason: Constipation Lorazepam (Lorazepam 2 Mg/Ml Sdv) 2 mg IVPUSH Q1H PRN PRN Reason: Agitation Last Admin: 02/25/21 10:03 Dose: 2 mg Documented by: Morphine Sulfate (Morphine 2 Mg/Ml Syringe) 2 mg IVPUSH Q2H PRN PRN Reason: Pain Last Admin: 02/25/21 13:09 Dose: 2 mg Documented by: Oxycodone/Acetaminophen (Acetaminophen/Oxycodone 325-5 Mg Tab) 1 tab PO Q6H PRN PRN Reason: Pain Scopolamine (Scopolamine 1.5 Mg Transdermal Patch) 1.5 mg TRDERM Q72H PRN PRN Reason: Other Last Admin: 02/24/21 22:29 Dose: 1.5 mg Documented by: Discontinued Medications Adenosine (Adenosine 6 Mg/2 Ml Sdv) 12 mg IVPUSH NOW ONE Stop: 02/23/21 14:59 Last Admin: 02/23/21 15:29 Dose: 12 mg Documented by: Albuterol (Albuterol 0.083% 2.5 Mg/3 Ml Neb Soln) 2.5 mg INH QIDRT [facility] Albuterol/Ipratropium (Albuterol/Ipratropium 3.0-0.5 Mg/3 Ml Neb Soln) 3 ml NEB Q4HRRT [facility] Last Admin: 02/24/21 18:10 Dose: 3 ml Documented by: Amiodarone HCl (Amiodarone 200 Mg Tab) 400 mg PO BID [facility] Last Admin: 02/24/21 11:39 Dose: Not Given Documented by: Amlodipine Besylate (Amlodipine 5 Mg Tab) 5 mg PO DAILY [facility] Last Admin: 02/24/21 09:26 Dose: Not Given Documented by: Aspirin (Aspirin 81 Mg Tab.Chew) 81 mg PO DAILY [facility] Last Admin: 02/24/21 09:26 Dose: Not Given Documented by: Dexamethasone (Dexamethasone 4 Mg/Ml Sdv) 6 mg IVPUSH ONETIME ONE Stop: 02/23/21 14:28 Last Admin: 02/23/21 15:26 Dose: 6 mg Documented by: Dexamethasone (Dexamethasone 4 Mg/Ml Sdv) 6 mg IVPUSH Q6H [facility] Stop: 03/04/21 17:46 Dexamethasone (Dexamethasone 10 Mg/Ml Sdv) 6 mg IVPUSH Q24H [facility] Last Admin: 02/24/21 16:32 Dose: 6 mg Documented by: Digoxin (Digoxin 500 Mcg/2 Ml Amp) 500 mcg IVPUSH ONETIME ONE Stop: 02/24/21 15:58 Last Admin: 02/24/21 16:31 Dose: 500 mcg Documented by: Diltiazem HCl (Diltiazem 25 Mg/5 Ml Sdv) 15 mg IVPUSH ONETIME ONE Stop: 02/23/21 15:18 Last Admin: 02/23/21 15:27 Dose: 15 mg Documented by: Diltiazem HCl (Diltiazem 25 Mg/5 Ml Sdv) 5 mg IVPUSH BOLUS ONE Stop: 02/24/21 11:22 Last Admin: 02/24/21 11:31 Dose: 5 mg Documented by: Docusate Sodium (Docusate Sodium 100 Mg Cap) 100 mg PO BID [facility] Last Admin: 02/24/21 09:26 Dose: Not Given Documented by: Guaifenesin/Codeine Phosphate (Codeine/Guaifenesin 10-100 Mg/5 Ml Syrup 5 Ml Cup) 5 ml PO Q4H PRN PRN Reason: Cough Heparin Sodium (Porcine) (Heparin Sodium 5,000 Units/Ml Vial) 5,000 units IVP [facility] ONETIME ONE Stop: 02/24/21 00:31 Last Admin: 02/24/21 01:13 Dose: 5,000 units Documented by: Hydroxyzine HCl (Hydroxyzine Hcl 25 Mg Tab) 25 mg PO BID [facility] Last Admin: 02/24/21 09:26 Dose: Not Given Documented by: Sodium Chloride (Normal Saline) 1,000 mls @ 999 mls/hr IV STAT ONE Stop: 02/23/21 14:19 Last Admin: 02/23/21 13:54 Dose: 999 mls/hr Documented by: Diltiazem HCl 100 mg/ Sodium (Chloride) 100 mls @ 5 mls/hr IV NOW [facility]; Protocol Last Titration: 02/23/21 17:30 Dose: 15 mg/hr, 15 mls/hr Documented by: Remdesivir 200 mg/ Sodium (Chloride) 250 mls @ 250 mls/hr IV ONETIME ONE Stop: 02/23/21 14:28 Last Admin: 02/23/21 15:21 Dose: 250 mls/hr Documented by: Sodium Chloride (Normal Saline) 1,000 mls @ 999 mls/hr IV STAT ONE Stop: 02/23/21 15:52 Last Admin: 02/23/21 15:18 Dose: 999 mls/hr Documented by: Remdesivir 100 mg/ Sodium (Chloride) 100 mls @ 100 mls/hr IV Q24H [facility] Stop: 02/27/21 18:44 Last Admin: 02/24/21 17:31 Dose: 100 mls/hr Documented by: Diltiazem HCl 100 mg/ Sodium (Chloride) 100 mls @ 5 mls/hr IV ASDIRECTED HEIDY; Protocol Last Titration: 02/24/21 20:07 Dose: 0 mg/hr, 0 mls/hr Documented by: Sodium Chloride (Normal Saline) 500 mls @ 75 mls/hr IV ASDIRECTED HEIDY Last Admin: 02/23/21 20:55 Dose: 75 mls/hr Documented by: Heparin Sodium/Sodium Chloride (Heparin 25,000 Units In 1/2 Ns 500 Ml) 500 mls @ 24.516 mls/hr IV TITRATE [facility]; Protocol Last Titration: 02/24/21 19:45 Dose: 0 units/kg/hr, 0 mls/hr Documented by: Lorazepam (Lorazepam 2 Mg/Ml Sdv) 0.5 mg IVPUSH Q6HR PRN PRN Reason: Agitation Last Admin: 02/24/21 01:31 Dose: 0.5 mg Documented by: Magnesium Hydroxide (Magnesium Hydroxide 400 Mg/5 Ml Susp 30 Ml Cup) 30 ml PO DAILY PRN PRN Reason: Constipation Mirtazapine (Mirtazapine 15 Mg Tab) 7.5 mg PO BEDTIME [facility] Last Admin: 02/23/21 20:52 Dose: Not Given Documented by: Nitroglycerin (Nitroglycerin 0.4 Mg Tab.Sl) 0.4 mg SL .Q5MIN PRN PRN Reason: Chest Pain Omeprazole (Omeprazole 20 Mg Cap.Cr) 20 mg PO DAILY@0630 [facility] Last Admin: 02/24/21 06:39 Dose: Not Given Documented by: Rivastigmine Tartrate [ Rivastigmine] 4.5 Mg Capsule 1 each PO DAILY [facility] Last Admin: 02/24/21 09:27 Dose: Not Given Documented by: Prednisone (Prednisone 20 Mg Tab) 20 mg PO DAILY [facility] Senna (Sennosides 8.6 Mg Tab) 17.2 mg PO BEDTIME [facility] Last Admin: 02/23/21 20:52 Dose: Not Given Documented by: Sodium Chloride (Sodium Chloride 0.9% 10 Ml Syringe) 10 ml FLUSH ASDIRECTED PRN PRN Reason: Keep Vein Open Last Admin: 02/23/21 14:14 Dose: 10 ml Documented by: Sodium Chloride (Sodium Chloride 0.9% 2.5 Ml Syringe) 2.5 ml FLUSH ASDIRECTED PRN PRN Reason: Keep Vein Open Last Admin: 02/23/21 14:13 Dose: 2.5 ml Documented by: - Patient Data Lab Results Last 24 hrs: Laboratory Results - last 24 hr 02/24/21 02/24/21 Range/Units 18:21 18:45 APTT 86.4 H (18.6-31.3) SEC POC Glucose 174 H (70-99) mg/dL Result Diagrams: 02/23/21 13:30 02/23/21 13:30 Sepsis Event Note - Focused Exam Vital Signs: Vital Signs Temp Pulse Resp BP Pulse Ox 02/25/21 08:34 97.8 F 107 H 24 H 136/74 87 L - Problem List & Annotations (1) Renal failure SNOMED Code(s): 89368658 Code(s): N19 - UNSPECIFIED KIDNEY FAILURE Status: Acute Current Visit: Yes (2) COVID-19 virus infection SNOMED Code(s): 512965791 Code(s): U07.1 - COVID-19 Status: Acute Current Visit: Yes (3) Atrial fibrillation with RVR SNOMED Code(s): 667167222536598 Code(s): I48.91 - UNSPECIFIED ATRIAL FIBRILLATION Status: Acute Current Visit: Yes (4) CVA (cerebral vascular accident) SNOMED Code(s): 211016983 Code(s): I63.9 - CEREBRAL INFARCTION, UNSPECIFIED Status: Acute Current Visit: Yes (5) Dementia SNOMED Code(s): 64848805 Code(s): F03.90 - UNSPECIFIED DEMENTIA WITHOUT BEHAVIORAL DISTURBANCE Status: Acute Current Visit: Yes - My Orders Last 24 Hours: My Active Orders 02/24/21 19:33 Transfer Patient (Change bed) [ADT] Routine 02/24/21 19:40 LORazepam [Ativan] 2 mg IVPUSH Q1H PRN 02/24/21 19:41 Scopolamine [Transderm-Scop] 1.5 mg TRDERM Q72H PRN 02/24/21 19:42 Code Status [Resuscitation Status] Routine 02/25/21 10:50 Communication Order [RC] ROUTINE - Assessment Assessment:: I discussed the case with Dr. Erma Reed and agree with the above assessment and plan.
[2021-02-24] MEDS ORDERED: Digoxin 500 MCG/2 ML Amp IVPUSH ONE (15:57)
[2021-02-24] MEDS ORDERED: Dexamethasone 10 MG/ML SDV IVPUSH SCH (17:00)
[2021-02-24] MEDS ORDERED: REMDESIVIR 100 MG in Sodium Chloride 0.9% 100 ML IV SCH (17:45)
--- NOTE | 2021-02-24 19:26 | PN ---
THC Physician - Brief Progress [id number]/03/2021 19:16[facility] [place], [place] - MWN ([place]) - MWN [place] REARDON of Service 02/24/2021 19:16HPI/Events of Not e eICU Progress NotePt is a 89 yo M admitted 02/23 with hypoxia from COVID diagnosed 02/17 and Afib wi th RVR. He is now rate controlled on Cardizem and Heparin gtts on simple mask to maintain his SpO2. H e is on steroids and remdesivir and slowly improving per nursing staff. He is resting comfortably in bed in NAD with stable VS. Case was discussed with his nurse Trish. eICU Recommendations:1) Continue all appropriate COVID therapies2) Goal SpO2 88-92% 3) Consider transition to po Cardizem and DOAC in am if more awake4) 2D Echo when available to further evaluate for structural cardiac defects 5) GI/D VT prophylaxisThank you for allowing us to participate in the care of your patient.Interventions Alisa r-Arrhythmia - evaluation and management, Hypoxemia - evaluation and management, Infection - evaluati on and [id number]-Gbzf-bkhbtfes therapies (e.g. VTE, beta alli, etc.), Communication w ith other healthcare providers and/or familyElectronically Signed by: HERMINIA BEAUCHAMP) on 021 19:26
[2021-02-24] MEDS ORDERED: Scopolamine 1.5 MG Transdermal Patch TRDERM PRN (19:41)
[2021-02-25] MEDS: Morphine 2 MG/ML SYRINGE IVPUSH PRN ×5 (03:04→21:38)
[2021-02-25] MEDS: LORazepam 2 MG/ML SDV IVPUSH PRN (10:03)
--- NOTE | 2021-02-25 12:39 | PCM.PN ---
<Erma Reed - Last Filed: 02/25/21 12:40> - General Info Date of Service: 02/25/21 Subjective Update: The patient is an 89-year-old [place]ian male, on day 3 of service, from [facility], who has a significant past medical history of CVA, hemiplegia, hypertension, diabetes mellitus, GERD, and depression, who was admitted to the intensive care unit due to acute respiratory failure secondary to COVID-19 pneumonia and A. fib with RVR. The patient's clinical status has progressively worsened and as a result he has been placed on comfort care measures including Ativan 2 mg IV every 1 hour, morphine 2 mg IV every 2 hours, Scopolamine 1.5 mg, Percocet, and Dulcolax. His oxygen apparatus is also been removed and he is no longer being supplied. His family was contacted yesterday to come visit the patient and after visitation there was a collective agreement between them and staff here at the hospital to place the patient on these cc measures. Laboratory and life saving measures have now been discontinued. - Review of Systems General: Reports: Other (Not obtained) - Patient Data Vitals - Most Recent: Last Vital Signs Temp 97.8 F 02/25/21 08:34 Pulse 107 H 02/25/21 08:34 Resp 24 H 02/25/21 08:34 BP 136/74 02/25/21 08:34 Pulse Ox 87 L 02/25/21 08:34 Weight - Most Recent: 145 lb 11.609 oz I&O - Last 24 Hours: Intake & Output 02/24/21 02/25/21 02/25/21 22:59 06:59 14:59 Intake Total 105 0 Output Total 360 350 Balance -255 -350 Lab Results Last 24 Hours: Laboratory Results - last 24 hr 02/24/21 02/24/21 02/24/21 Range/Units 12:35 18:21 18:45 APTT 106.0 H 86.4 H (18.6-31.3) SEC POC Glucose 174 H (70-99) mg/dL Med Orders - Current: Current Medications Bisacodyl (Bisacodyl 10 Mg Supp) 10 mg RECTAL DAILY PRN PRN Reason: Constipation Lorazepam (Lorazepam 2 Mg/Ml Sdv) 2 mg IVPUSH Q1H PRN PRN Reason: Agitation Last Admin: 02/25/21 10:03 Dose: 2 mg Documented by: Morphine Sulfate (Morphine 2 Mg/Ml Syringe) 2 mg IVPUSH Q2H PRN PRN Reason: Pain Last Admin: 02/25/21 06:12 Dose: 2 mg Documented by: Oxycodone/Acetaminophen (Acetaminophen/Oxycodone 325-5 Mg Tab) 1 tab PO Q6H PRN PRN Reason: Pain Scopolamine (Scopolamine 1.5 Mg Transdermal Patch) 1.5 mg TRDERM Q72H PRN PRN Reason: Other Last Admin: 02/24/21 22:29 Dose: 1.5 mg Documented by: Discontinued Medications Adenosine (Adenosine 6 Mg/2 Ml Sdv) 12 mg IVPUSH NOW ONE Stop: 02/23/21 14:59 Last Admin: 02/23/21 15:29 Dose: 12 mg Documented by: Albuterol (Albuterol 0.083% 2.5 Mg/3 Ml Neb Soln) 2.5 mg INH QIDRT [facility] Albuterol/Ipratropium (Albuterol/Ipratropium 3.0-0.5 Mg/3 Ml Neb Soln) 3 ml NEB Q4HRRT [facility] Last Admin: 02/24/21 18:10 Dose: 3 ml Documented by: Amiodarone HCl (Amiodarone 200 Mg Tab) 400 mg PO BID [facility] Last Admin: 02/24/21 11:39 Dose: Not Given Documented by: Amlodipine Besylate (Amlodipine 5 Mg Tab) 5 mg PO DAILY [facility] Last Admin: 02/24/21 09:26 Dose: Not Given Documented by: Aspirin (Aspirin 81 Mg Tab.Chew) 81 mg PO DAILY [facility] Last Admin: 02/24/21 09:26 Dose: Not Given Documented by: Dexamethasone (Dexamethasone 4 Mg/Ml Sdv) 6 mg IVPUSH ONETIME ONE Stop: 02/23/21 14:28 Last Admin: 02/23/21 15:26 Dose: 6 mg Documented by: Dexamethasone (Dexamethasone 4 Mg/Ml Sdv) 6 mg IVPUSH Q6H [facility] Stop: 03/04/21 17:46 Dexamethasone (Dexamethasone 10 Mg/Ml Sdv) 6 mg IVPUSH Q24H [facility] Last Admin: 02/24/21 16:32 Dose: 6 mg Documented by: Digoxin (Digoxin 500 Mcg/2 Ml Amp) 500 mcg IVPUSH ONETIME ONE Stop: 02/24/21 15:58 Last Admin: 02/24/21 16:31 Dose: 500 mcg Documented by: Diltiazem HCl (Diltiazem 25 Mg/5 Ml Sdv) 15 mg IVPUSH ONETIME ONE Stop: 02/23/21 15:18 Last Admin: 02/23/21 15:27 Dose: 15 mg Documented by: Diltiazem HCl (Diltiazem 25 Mg/5 Ml Sdv) 5 mg IVPUSH BOLUS ONE Stop: 02/24/21 11:22 Last Admin: 02/24/21 11:31 Dose: 5 mg Documented by: Docusate Sodium (Docusate Sodium 100 Mg Cap) 100 mg PO BID [facility] Last Admin: 02/24/21 09:26 Dose: Not Given Documented by: Guaifenesin/Codeine Phosphate (Codeine/Guaifenesin 10-100 Mg/5 Ml Syrup 5 Ml Cup) 5 ml PO Q4H PRN PRN Reason: Cough Heparin Sodium (Porcine) (Heparin Sodium 5,000 Units/Ml Vial) 5,000 units IVPUSH ONETIME ONE Stop: 02/24/21 00:31 Last Admin: 02/24/21 01:13 Dose: 5,000 units Documented by: Hydroxyzine HCl (Hydroxyzine Hcl 25 Mg Tab) 25 mg PO BID [facility] Last Admin: 02/24/21 09:26 Dose: Not Given Documented by: Sodium Chloride (Normal Saline) 1,000 mls @ 999 mls/hr IV STAT ONE Stop: 02/23/21 14:19 Last Admin: 02/23/21 13:54 Dose: 999 mls/hr Documented by: Diltiazem HCl 100 mg/ Sodium (Chloride) 100 mls @ 5 mls/hr IV NOW [facility]; Protocol Last Titration: 02/23/21 17:30 Dose: 15 mg/hr, 15 mls/hr Documented by: Remdesivir 200 mg/ Sodium (Chloride) 250 mls @ 250 mls/hr IV ONETIME ONE Stop: 02/23/21 14:28 Last Admin: 02/23/21 15:21 Dose: 250 mls/hr Documented by: Sodium Chloride (Normal Saline) 1,000 mls @ 999 mls/hr IV STAT ONE Stop: 02/23/21 15:52 Last Admin: 02/23/21 15:18 Dose: 999 mls/hr Documented by: Remdesivir 100 mg/ Sodium (Chloride) 100 mls @ 100 mls/hr IV Q24H [facility] Stop: 02/27/21 18:44 Last Admin: 02/24/21 17:31 Dose: 100 mls/hr Documented by: Diltiazem HCl 100 mg/ Sodium (Chloride) 100 mls @ 5 mls/hr IV ASDIRECTED [facility]; Protocol Last Titration: 02/24/21 20:07 Dose: 0 mg/hr, 0 mls/hr Documented by: Sodium Chloride (Normal Saline) 500 mls @ 75 mls/hr IV ASDIRECTED [facility] Last Admin: 02/23/21 20:55 Dose: 75 mls/hr Documented by: Heparin Sodium/Sodium Chloride (Heparin 25,000 Units In 1/2 Ns 500 Ml) 500 mls @ 24.516 mls/hr IV TITRATE [facility]; Protocol Last Titration: 02/24/21 19:45 Dose: 0 units/kg/hr, 0 mls/hr Documented by: Lorazepam (Lorazepam 2 Mg/Ml Sdv) 0.5 mg IVPUSH Q6HR PRN PRN Reason: Agitation Last Admin: 02/24/21 01:31 Dose: 0.5 mg Documented by: Magnesium Hydroxide (Magnesium Hydroxide 400 Mg/5 Ml Susp 30 Ml Cup) 30 ml PO DAILY PRN PRN Reason: Constipation Mirtazapine (Mirtazapine 15 Mg Tab) 7.5 mg PO BEDTIME [facility] Last Admin: 02/23/21 20:52 Dose: Not Given Documented by: Nitroglycerin (Nitroglycerin 0.4 Mg Tab.Sl) 0.4 mg SL .Q5MIN PRN PRN Reason: Chest Pain Omeprazole (Omeprazole 20 Mg Cap.Cr) 20 mg PO DAILY@0630 [facility] Last Admin: 02/24/21 06:39 Dose: Not Given Documented by: Rivastigmine Tartrate [ Rivastigmine] 4.5 Mg Capsule 1 each PO DAILY [facility] Last Admin: 02/24/21 09:27 Dose: Not Given Documented by: Prednisone (Prednisone 20 Mg Tab) 20 mg PO DAILY [facility] Senna (Sennosides 8.6 Mg Tab) 17.2 mg PO BEDTIME [facility] Last Admin: 02/23/21 20:52 Dose: Not Given Documented by: Sodium Chloride (Sodium Chloride 0.9% 10 Ml Syringe) 10 ml FLUSH ASDIRECTED PRN PRN Reason: Keep Vein Open Last Admin: 02/23/21 14:14 Dose: 10 ml Documented by: Sodium Chloride (Sodium Chloride 0.9% 2.5 Ml Syringe) 2.5 ml FLUSH ASDIRECTED PRN PRN Reason: Keep Vein Open Last Admin: 02/23/21 14:13 Dose: 2.5 ml Documented by: - Exam Urinary Catheter Total Time: 1Days 5Hours General: Other (Due to comfort care measures, physical examination was not completed.) - Patient Data Lab Results Last 24 hrs: Laboratory Results - last 24 hr 02/24/21 02/24/21 02/24/21 Range/Units 12:35 18:21 18:45 APTT 106.0 H 86.4 H (18.6-31.3) SEC POC Glucose 174 H (70-99) mg/dL Result Diagrams: 02/23/21 13:30 02/23/21 13:30 Sepsis Event Note - Evaluation Sepsis Screening Result: Severe Sepsis Risk - Focused Exam Vital Signs: Vital Signs Temp Pulse Resp BP Pulse Ox 02/25/21 08:34 97.8 F 107 H 24 H 136/74 87 L - Problem List & Annotations (1) Atrial fibrillation with RVR SNOMED Code(s): 882699473495382 Code(s): I48.91 - UNSPECIFIED ATRIAL FIBRILLATION Status: Acute Current Visit: Yes (2) COVID-19 virus infection SNOMED Code(s): 037840885 Code(s): U07.1 - COVID-19 Status: Acute Current Visit: Yes (3) CVA (cerebral vascular accident) SNOMED Code(s): 731993472 Code(s): I63.9 - CEREBRAL INFARCTION, UNSPECIFIED Status: Acute Current Visit: Yes (4) Renal insufficiency SNOMED Code(s): 089782337, 976338676 Code(s): N28.9 - DISORDER OF KIDNEY AND URETER, UNSPECIFIED Status: Acute Current Visit: Yes - Problem List Review Problem List Initiated/Reviewed/Updated: Yes - Assessment Assessment:: 1. COVID-19 pneumonia -Treatment discontinued 2. A. fib with RVR -Treatment discontinued 3. BALDOMERO -Treatment discontinued 4. Past medical history of CVA, hypertension, anxiety, depression -Treatment discontinued The patient is on comfort care measures and the only medications he will be receiving is Ativan, morphine, scopolamine, Percocet, and Dulcolax. <Herrera Zuniga - Last Filed: 02/25/21 15:41> - Patient Data Vitals - Most Recent: Last Vital Signs Temp 97.8 F 02/25/21 08:34 Pulse 107 H 02/25/21 08:34 Resp 24 H 02/25/21 08:34 BP 136/74 02/25/21 08:34 Pulse Ox 87 L 02/25/21 08:34 I&O - Last 24 Hours: Intake & Output 02/25/21 02/25/21 02/25/21 06:59 14:59 22:59 Intake Total 0 Output Total 350 Balance -350 Lab Results Last 24 Hours: Laboratory Results - last 24 hr 02/24/21 02/24/21 Range/Units 18:21 18:45 APTT 86.4 H (18.6-31.3) SEC POC Glucose 174 H (70-99) mg/dL Med Orders - Current: Current Medications Bisacodyl (Bisacodyl 10 Mg Supp) 10 mg RECTAL DAILY PRN PRN Reason: Constipation Lorazepam (Lorazepam 2 Mg/Ml Sdv) 2 mg IVPUSH Q1H PRN PRN Reason: Agitation Last Admin: 02/25/21 10:03 Dose: 2 mg Documented by: Morphine Sulfate (Morphine 2 Mg/Ml Syringe) 2 mg IVPUSH Q2H PRN PRN Reason: Pain Last Admin: 02/25/21 13:09 Dose: 2 mg Documented by: Oxycodone/Acetaminophen (Acetaminophen/Oxycodone 325-5 Mg Tab) 1 tab PO Q6H PRN PRN Reason: Pain Scopolamine (Scopolamine 1.5 Mg Transdermal Patch) 1.5 mg TRDERM Q72H PRN PRN Reason: Other Last Admin: 02/24/21 22:29 Dose: 1.5 mg Documented by: Discontinued Medications Adenosine (Adenosine 6 Mg/2 Ml Sdv) 12 mg IVPUSH NOW ONE Stop: 02/23/21 14:59 Last Admin: 02/23/21 15:29 Dose: 12 mg Documented by: Albuterol (Albuterol 0.083% 2.5 Mg/3 Ml Neb Soln) 2.5 mg INH QIDRT [facility] Albuterol/Ipratropium (Albuterol/Ipratropium 3.0-0.5 Mg/3 Ml Neb Soln) 3 ml NEB Q4HRRT [facility] Last Admin: 02/24/21 18:10 Dose: 3 ml Documented by: Amiodarone HCl (Amiodarone 200 Mg Tab) 400 mg PO BID [facility] Last Admin: 02/24/21 11:39 Dose: Not Given Documented by: Amlodipine Besylate (Amlodipine 5 Mg Tab) 5 mg PO DAILY [facility] Last Admin: 02/24/21 09:26 Dose: Not Given Documented by: Aspirin (Aspirin 81 Mg Tab.Chew) 81 mg PO DAILY [facility] Last Admin: 02/24/21 09:26 Dose: Not Given Documented by: Dexamethasone (Dexamethasone 4 Mg/Ml Sdv) 6 mg IVPUSH ONETIME ONE Stop: 02/23/21 14:28 Last Admin: 02/23/21 15:26 Dose: 6 mg Documented by: Dexamethasone (Dexamethasone 4 Mg/Ml Sdv) 6 mg IVPUSH Q6H [facility] Stop: 03/04/21 17:46 Dexamethasone (Dexamethasone 10 Mg/Ml Sdv) 6 mg IVPUSH Q24H [facility] Last Admin: 02/24/21 16:32 Dose: 6 mg Documented by: Digoxin (Digoxin 500 Mcg/2 Ml Amp) 500 mcg IVPUSH ONETIME ONE Stop: 02/24/21 15:58 Last Admin: 02/24/21 16:31 Dose: 500 mcg Documented by: Diltiazem HCl (Diltiazem 25 Mg/5 Ml Sdv) 15 mg IVPUSH ONETIME ONE Stop: 02/23/21 15:18 Last Admin: 02/23/21 15:27 Dose: 15 mg Documented by: Diltiazem HCl (Diltiazem 25 Mg/5 Ml Sdv) 5 mg IVPUSH BOLUS ONE Stop: 02/24/21 11:22 Last Admin: 02/24/21 11:31 Dose: 5 mg Documented by: Docusate Sodium (Docusate Sodium 100 Mg Cap) 100 mg PO BID [facility] Last Admin: 02/24/21 09:26 Dose: Not Given Documented by: Guaifenesin/Codeine Phosphate (Codeine/Guaifenesin 10-100 Mg/5 Ml Syrup 5 Ml Cup) 5 ml PO Q4H PRN PRN Reason: Cough Heparin Sodium (Porcine) (Heparin Sodium 5,000 Units/Ml Vial) 5,000 units IVPUSH ONETIME ONE Stop: 02/24/21 00:31 Last Admin: 02/24/21 01:13 Dose: 5,000 units Documented by: Hydroxyzine HCl (Hydroxyzine Hcl 25 Mg Tab) 25 mg PO BID [facility] Last Admin: 02/24/21 09:26 Dose: Not Given Documented by: Sodium Chloride (Normal Saline) 1,000 mls @ 999 mls/hr IV STAT ONE Stop: 02/23/21 14:19 Last Admin: 02/23/21 13:54 Dose: 999 mls/hr Documented by: Diltiazem HCl 100 mg/ Sodium (Chloride) 100 mls @ 5 mls/hr IV NOW [facility]; Protocol Last Titration: 02/23/21 17:30 Dose: 15 mg/hr, 15 mls/hr Documented by: Remdesivir 200 mg/ Sodium (Chloride) 250 mls @ 250 mls/hr IV ONETIME ONE Stop: 02/23/21 14:28 Last Admin: 02/23/21 15:21 Dose: 250 mls/hr Documented by: Sodium Chloride (Normal Saline) 1,000 mls @ 999 mls/hr IV STAT ONE Stop: 02/23/21 15:52 Last Admin: 02/23/21 15:18 Dose: 999 mls/hr Documented by: Remdesivir 100 mg/ Sodium (Chloride) 100 mls @ 100 mls/hr IV Q24H [facility] Stop: 02/27/21 18:44 Last Admin: 02/24/21 17:31 Dose: 100 mls/hr Documented by: Diltiazem HCl 100 mg/ Sodium (Chloride) 100 mls @ 5 mls/hr IV ASDIRECTED [facility]; Protocol Last Titration: 02/24/21 20:07 Dose: 0 mg/hr, 0 mls/hr Documented by: Sodium Chloride (Normal Saline) 500 mls @ 75 mls/hr IV ASDIRECTED [facility] Last Admin: 02/23/21 20:55 Dose: 75 mls/hr Documented by: Heparin Sodium/Sodium Chloride (Heparin 25,000 Units In 1/2 Ns 500 Ml) 500 mls @ 24.516 mls/hr IV TITRATE [facility]; Protocol Last Titration: 02/24/21 19:45 Dose: 0 units/kg/hr, 0 mls/hr Documented by: Lorazepam (Lorazepam 2 Mg/Ml Sdv) 0.5 mg IVPUSH Q6HR PRN PRN Reason: Agitation Last Admin: 02/24/21 01:31 Dose: 0.5 mg Documented by: Magnesium Hydroxide (Magnesium Hydroxide 400 Mg/5 Ml Susp 30 Ml Cup) 30 ml PO DAILY PRN PRN Reason: Constipation Mirtazapine (Mirtazapine 15 Mg Tab) 7.5 mg PO BEDTIME [facility] Last Admin: 02/23/21 20:52 Dose: Not Given Documented by: Nitroglycerin (Nitroglycerin 0.4 Mg Tab.Sl) 0.4 mg SL .Q5MIN PRN PRN Reason: Chest Pain Omeprazole (Omeprazole 20 Mg Cap.Cr) 20 mg PO DAILY@0630 [facility] Last Admin: 02/24/21 06:39 Dose: Not Given Documented by: Rivastigmine Tartrate [ Rivastigmine] 4.5 Mg Capsule 1 each PO DAILY [facility] Last Admin: 02/24/21 09:27 Dose: Not Given Documented by: Prednisone (Prednisone 20 Mg Tab) 20 mg PO DAILY [facility] Senna (Sennosides 8.6 Mg Tab) 17.2 mg PO BEDTIME [facility] Last Admin: 02/23/21 20:52 Dose: Not Given Documented by: Sodium Chloride (Sodium Chloride 0.9% 10 Ml Syringe) 10 ml FLUSH ASDIRECTED PRN PRN Reason: Keep Vein Open Last Admin: 02/23/21 14:14 Dose: 10 ml Documented by: Sodium Chloride (Sodium Chloride 0.9% 2.5 Ml Syringe) 2.5 ml FLUSH ASDIRECTED PRN PRN Reason: Keep Vein Open Last Admin: 02/23/21 14:13 Dose: 2.5 ml Documented by: - Patient Data Lab Results Last 24 hrs: Laboratory Results - last 24 hr 02/24/21 02/24/21 Range/Units 18:21 18:45 APTT 86.4 H (18.6-31.3) SEC POC Glucose 174 H (70-99) mg/dL Result Diagrams: 02/23/21 13:30 02/23/21 13:30 Sepsis Event Note - Focused Exam Vital Signs: Vital Signs Temp Pulse Resp BP Pulse Ox 02/25/21 08:34 97.8 F 107 H 24 H 136/74 87 L - Problem List & Annotations (1) Renal failure SNOMED Code(s): 70923585 Code(s): N19 - UNSPECIFIED KIDNEY FAILURE Status: Acute Current Visit: Yes (2) COVID-19 virus infection SNOMED Code(s): 646691587 Code(s): U07.1 - COVID-19 Status: Acute Current Visit: Yes (3) Atrial fibrillation with RVR SNOMED Code(s): 499702990855497 Code(s): I48.91 - UNSPECIFIED ATRIAL FIBRILLATION Status: Acute Current Visit: Yes (4) CVA (cerebral vascular accident) SNOMED Code(s): 037059574 Code(s): I63.9 - CEREBRAL INFARCTION, UNSPECIFIED Status: Acute Current Visit: Yes (5) Dementia SNOMED Code(s): 50085836 Code(s): F03.90 - UNSPECIFIED DEMENTIA WITHOUT BEHAVIORAL DISTURBANCE Status: Acute Current Visit: Yes - My Orders Last 24 Hours: My Active Orders 02/24/21 19:33 Transfer Patient (Change bed) [ADT] Routine 02/24/21 19:40 LORazepam [Ativan] 2 mg IVPUSH Q1H PRN 02/24/21 19:41 Scopolamine [Transderm-Scop] 1.5 mg TRDERM Q72H PRN 02/24/21 19:42 Code Status [Resuscitation Status] Routine 02/25/21 10:50 Communication Order [RC] ROUTINE - Assessment Assessment:: I agree with the above assessment and plan. Discussed case with Dr. Reed.
--- NOTE | 2021-02-26 17:20 | PCM.DCSUM1 ---
Discharge Summary - Hospital Course Diagnosis: Stroke: No - Discharge Data Discharge Date: 02/26/21 Discharge Disposition: 20 Condition: Good - Referral to Home Health Primary Care Physician: Daniele Carrera MD - Discharge Diagnosis/Problem(s) (1) Renal failure SNOMED Code(s): 70913865 ICD Code: N19 - UNSPECIFIED KIDNEY FAILURE Status: Acute (2) COVID-19 virus infection SNOMED Code(s): 361637624 ICD Code: U07.1 - COVID-19 Status: Acute (3) Atrial fibrillation with RVR SNOMED Code(s): 608549703880791 ICD Code: I48.91 - UNSPECIFIED ATRIAL FIBRILLATION Status: Acute (4) CVA (cerebral vascular accident) SNOMED Code(s): 805785129 ICD Code: I63.9 - CEREBRAL INFARCTION, UNSPECIFIED Status: Acute (5) Dementia SNOMED Code(s): 77717497 ICD Code: F03.90 - UNSPECIFIED DEMENTIA WITHOUT BEHAVIORAL DISTURBANCE Status: Acute - Discharge Plan *PRESCRIPTION DRUG MONITORING PROGRAM REVIEWED*: Not Applicable *COPY OF PRESCRIPTION DRUG MONITORING REPORT IN PATIENT PATY: Not Applicable Patient Handouts: COVID-19 Frequently Asked Questions, Hypomagnesemia, COVID- 19: How to Protect Yourself and Others - CDC, Dementia Caregiver Guide, Dementia, [id number], Atrial Fibrillation, [id number] Referrals: Daniele Carrera MD [Primary Care Provider] - - Discharge Summary/Plan Comment DC Time >30 min.: No Total # of Minutes for Discharge Time: 15mins Discharge Summary/Plan Comment: Mr. 89 y/o M with a h/o advanced dementia, CVA with left sided residual weakness admitted with COVID pneumonia and Afib with RVR. He had a short stay in the ICU on HFNC. He did not tolerate the treatment. He kept yelling and wanting to remove the oxygen mask. I discussed the patients overall poor condition with the family and we all agreed to make him comfortable. His daughter and grand son were able to come in and visit him. He was placed on comfort measures. On 06/08/20 at 12:45am he was pronounced . The family was notified and arrangements were made for disposition of his body. - Patient Data Vitals - Most Recent: Last Vital Signs Temp 97.6 F 12/04/21 21:41 Pulse 107 H 02/25/21 21:41 Resp 30 H 02/25/21 21:41 BP 127/51 L 02/25/21 21:41 Pulse Ox 73 L 02/25/21 21:41 Weight - Most Recent: 145 lb 11.609 oz Med Orders - Current: Current Medications Discontinued Medications Adenosine (Adenosine 6 Mg/2 Ml Sdv) 12 mg IVPUSH NOW ONE Stop: 02/23/21 14:59 Last Admin: 02/23/21 15:29 Dose: 12 mg Documented by: Albuterol (Albuterol 0.083% 2.5 Mg/3 Ml Neb Soln) 2.5 mg INH QIDRT [facility] Albuterol/Ipratropium (Albuterol/Ipratropium 3.0-0.5 Mg/3 Ml Neb Soln) 3 ml NEB Q4HRRT [facility] Last Admin: 02/24/21 18:10 Dose: 3 ml Documented by: Amiodarone HCl (Amiodarone 200 Mg Tab) 400 mg PO BID [facility] Last Admin: 02/24/21 11:39 Dose: Not Given Documented by: Amlodipine Besylate (Amlodipine 5 Mg Tab) 5 mg PO DAILY [facility] Last Admin: 02/24/21 09:26 Dose: Not Given Documented by: Aspirin (Aspirin 81 Mg Tab.Chew) 81 mg PO DAILY [facility] Last Admin: 02/24/21 09:26 Dose: Not Given Documented by: Bisacodyl (Bisacodyl 10 Mg Supp) 10 mg RECTAL DAILY PRN PRN Reason: Constipation Dexamethasone (Dexamethasone 4 Mg/Ml Sdv) 6 mg IVPUSH ONETIME ONE Stop: 02/23/21 14:28 Last Admin: 02/23/21 15:26 Dose: 6 mg Documented by: Dexamethasone (Dexamethasone 4 Mg/Ml Sdv) 6 mg IVPUSH Q6H [facility] Stop: 03/04/21 17:46 Dexamethasone (Dexamethasone 10 Mg/Ml Sdv) 6 mg IVPUSH Q24H [facility] Last Admin: 02/24/21 16:32 Dose: 6 mg Documented by: Digoxin (Digoxin 500 Mcg/2 Ml Amp) 500 mcg IVPUSH ONETIME ONE Stop: 02/24/21 15:58 Last Admin: 02/24/21 16:31 Dose: 500 mcg Documented by: Diltiazem HCl (Diltiazem 25 Mg/5 Ml Sdv) 15 mg IVPUSH ONETIME ONE Stop: 02/23/21 15:18 Last Admin: 02/23/21 15:27 Dose: 15 mg Documented by: Diltiazem HCl (Diltiazem 25 Mg/5 Ml Sdv) 5 mg IVPUSH BOLUS ONE Stop: 02/24/21 11:22 Last Admin: 02/24/21 11:31 Dose: 5 mg Documented by: Docusate Sodium (Docusate Sodium 100 Mg Cap) 100 mg PO BID [facility] Last Admin: 02/24/21 09:26 Dose: Not Given Documented by: Guaifenesin/Codeine Phosphate (Codeine/Guaifenesin 10-100 Mg/5 Ml Syrup 5 Ml Cup) 5 ml PO Q4H PRN PRN Reason: Cough Heparin Sodium (Porcine) (Heparin Sodium 5,000 Units/Ml Vial) 5,000 units IVPUSH ONETIME ONE Stop: 02/24/21 00:31 Last Admin: 02/24/21 01:13 Dose: 5,000 units Documented by: Hydroxyzine HCl (Hydroxyzine Hcl 25 Mg Tab) 25 mg PO BID [facility] Last Admin: 02/24/21 09:26 Dose: Not Given Documented by: Sodium Chloride (Normal Saline) 1,000 mls @ 999 mls/hr IV STAT ONE Stop: 02/23/21 14:19 Last Admin: 02/23/21 13:54 Dose: 999 mls/hr Documented by: Diltiazem HCl 100 mg/ Sodium (Chloride) 100 mls @ 5 mls/hr IV NOW [facility]; Protocol Last Titration: 02/23/21 17:30 Dose: 15 mg/hr, 15 mls/hr Documented by: Remdesivir 200 mg/ Sodium (Chloride) 250 mls @ 250 mls/hr IV ONETIME ONE Stop: 02/23/21 14:28 Last Admin: 02/23/21 15:21 Dose: 250 mls/hr Documented by: Sodium Chloride (Normal Saline) 1,000 mls @ 999 mls/hr IV STAT ONE Stop: 02/23/21 15:52 Last Admin: 02/23/21 15:18 Dose: 999 mls/hr Documented by: Remdesivir 100 mg/ Sodium (Chloride) 100 mls @ 100 mls/hr IV Q24H [facility] Stop: 02/27/21 18:44 Last Admin: 02/24/21 17:31 Dose: 100 mls/hr Documented by: Diltiazem HCl 100 mg/ Sodium (Chloride) 100 mls @ 5 mls/hr IV ASDIRECTED [facility]; Protocol Last Titration: 02/24/21 20:07 Dose: 0 mg/hr, 0 mls/hr Documented by: Sodium Chloride (Normal Saline) 500 mls @ 75 mls/hr IV ASDIRECTED [facility] Last Admin: 02/23/21 20:55 Dose: 75 mls/hr Documented by: Heparin Sodium/Sodium Chloride (Heparin 25,000 Units In 1/2 Ns 500 Ml) 500 mls @ 24.516 mls/hr IV TITRATE [facility]; Protocol Last Titration: 02/24/21 19:45 Dose: 0 units/kg/hr, 0 mls/hr Documented by: Lorazepam (Lorazepam 2 Mg/Ml Sdv) 0.5 mg IVPUSH Q6HR PRN PRN Reason: Agitation Last Admin: 02/24/21 01:31 Dose: 0.5 mg Documented by: Lorazepam (Lorazepam 2 Mg/Ml Sdv) 2 mg IVPUSH Q1H PRN PRN Reason: Agitation Last Admin: 02/25/21 10:03 Dose: 2 mg Documented by: Magnesium Hydroxide (Magnesium Hydroxide 400 Mg/5 Ml Susp 30 Ml Cup) 30 ml PO DAILY PRN PRN Reason: Constipation Mirtazapine (Mirtazapine 15 Mg Tab) 7.5 mg PO BEDTIME [facility] Last Admin: 02/23/21 20:52 Dose: Not Given Documented by: Morphine Sulfate (Morphine 2 Mg/Ml Syringe) 2 mg IVPUSH Q2H PRN PRN Reason: Pain Last Admin: 02/25/21 21:38 Dose: 2 mg Documented by: Nitroglycerin (Nitroglycerin 0.4 Mg Tab.Sl) 0.4 mg SL .Q5MIN PRN PRN Reason: Chest Pain Omeprazole (Omeprazole 20 Mg Cap.Cr) 20 mg PO DAILY@0630 [facility] Last Admin: 02/24/21 06:39 Dose: Not Given Documented by: Oxycodone/Acetaminophen (Acetaminophen/Oxycodone 325-5 Mg Tab) 1 tab PO Q6H PRN PRN Reason: Pain Rivastigmine Tartrate [ Rivastigmine] 4.5 Mg Capsule 1 each PO DAILY [facility] Last Admin: 02/24/21 09:27 Dose: Not Given Documented by: Prednisone (Prednisone 20 Mg Tab) 20 mg PO DAILY [facility] Scopolamine (Scopolamine 1.5 Mg Transdermal Patch) 1.5 mg TRDERM Q72H PRN PRN Reason: Other Last Admin: 02/24/21 22:29 Dose: 1.5 mg Documented by: Senna (Sennosides 8.6 Mg Tab) 17.2 mg PO BEDTIME [facility] Last Admin: 02/23/21 20:52 Dose: Not Given Documented by: Sodium Chloride (Sodium Chloride 0.9% 10 Ml Syringe) 10 ml FLUSH ASDIRECTED PRN PRN Reason: Keep Vein Open Last Admin: 02/23/21 14:14 Dose: 10 ml Documented by: Sodium Chloride (Sodium Chloride 0.9% 2.5 Ml Syringe) 2.5 ml FLUSH ASDIRECTED PRN PRN Reason: Keep Vein Open Last Admin: 02/23/21 14:13 Dose: 2.5 ml Documented by:
== END 2021-02-26 00:45 | disposition expired | DRG 177 ==
LOC: MW.ED 13:11 → MW.ICU 15:22 → MW.MS 02-24 19:52
PROVIDERS: ADMIT Internal Medicine; ATTEND Internal Medicine
PROC: XW033E5 Introduction of Remdesivir Anti-infective into Peripheral Vein, Percutaneous Approach, New Technology Group 5 (ICD-10-PCS; principal; 2021-02-23)
PROC: 3E0333Z Introduction of Anti-inflammatory into Peripheral Vein, Percutaneous Approach (ICD-10-PCS; 2021-02-23)
DX: U07.1 COVID-19 (principal); J12.82 Pneumonia due to coronavirus disease 2019; J96.01 Acute respiratory failure with hypoxia; N28.9 Disorder of kidney and ureter, unspecified; N17.9 Acute kidney failure, unspecified; I69.354 Hemiplegia and hemiparesis following cerebral infarction affecting left non-dominant side; I10 Essential (primary) hypertension; F03.91 Unspecified dementia, unspecified severity, with behavioral disturbance; E87.0 Hyperosmolality and hypernatremia; I48.92 Unspecified atrial flutter; E11.9 Type 2 diabetes mellitus without complications; Z51.5 Encounter for palliative care; I69.359 Hemiplegia and hemiparesis following cerebral infarction affecting unspecified side; F03.90 Unspecified dementia, unspecified severity, without behavioral disturbance, psychotic disturbance, mood disturbance, and anxiety; I48.91 Unspecified atrial fibrillation; E78.00 Pure hypercholesterolemia, unspecified; K21.9 Gastro-esophageal reflux disease without esophagitis; Z66 Do not resuscitate; J45.909 Unspecified asthma, uncomplicated; I12.9 Hypertensive chronic kidney disease with stage 1 through stage 4 chronic kidney disease, or unspecified chronic kidney disease; N18.9 Chronic kidney disease, unspecified; R45.1 Restlessness and agitation; E11.22 Type 2 diabetes mellitus with diabetic chronic kidney disease; E83.42 Hypomagnesemia; E86.1 Hypovolemia; F41.9 Anxiety disorder, unspecified; F32.A Depression, unspecified; Z79.01 Long term (current) use of anticoagulants; Z91.013 Allergy to seafood; Z98.49 Cataract extraction status, unspecified eye; Z79.84 Long term (current) use of oral hypoglycemic drugs; Z79.52 Long term (current) use of systemic steroids; Z79.82 Long term (current) use of aspirin; Z79.899 Other long term (current) drug therapy; Z90.49 Acquired absence of other specified parts of digestive tract; Z97.3 Presence of spectacles and contact lenses; Z85.828 Personal history of other malignant neoplasm of skin
CPT/HCPCS: 0240U; 36415; 51702; 71045; 80053; 81001; 82947; 83605; 83735; 84484; 85025; 85379; 85730; 93005; 96365; 96375; 99285; 99221; 99232; 99238; A9270-GY; J0153; J1100; J1160; J1644; J2060; J2270; J3490; J7030; J7040; J7050; J7620-GY